=== PATIENT | male | born 1960 | race Caucasian/White ===

== ENCOUNTER 2023-07-05 17:42 | Observation (INO) ==
--- NOTE | 2023-07-05 17:53 | ED Triage Note ---
Date of Service July 05, 2023 Provider in Triage Author: Kenia Simmons History of Present Illness This patient was briefly evaluated while in triage. An abbreviated physical exam was performed. This patient is a 63-year-old Male who presents to the ED for evaluation of chest pain. Has had tightness in his chest for the past couple days. Yesterday he went to [facility] and had a CXR, EKG, and blood work that was negative for an NH. He has a history of cardiac stents. The patient states that he was discharged and had chest pain again at home and became concerned. Yesterday the pain was on the right side and today more in the middle. Has an allergy to shellfish, but able to have IV contrast with no problems and with no pretreatment per patient. Physical Exam GENERAL: Non-toxic and in no acute distress. HEENT: Pupils equal. No obvious scleral icterus. HEART: Regular rate and rhythm. LUNGS: Clear to auscultation. No accessory muscle use. ABDOMEN: Soft, non-tender to palpation. NEURO: Alert and oriented. No obvious neurological deficits on quick neuro exam. Initial orders for labs and / or imaging were placed and patient was placed in the waiting area until a bed is available. Please see further documentation for the full ED course. MDM / Impression Impression Impression: Chest pain Impression: Chest pain Qualifiers: Chest pain type: unspecified Qualified Code(s): R07.9 - Chest pain, unspecified
[2023-07-05 17:55] VITALS: TEMP 97.9
[2023-07-05 18:24] LABS: Basophils # (auto) 0.01 K/uL (0.00-0.20); Basophils % (auto) 0.1 %; Eosinophils # (auto) 0.04 K/uL (0.00-0.50); Eosinophils % (auto) 0.4 %; Hematocrit (blood only) 46.7 % (42.0-52.0); Hemoglobin 16.3 g/dl (14.0-18.0); Immature Granulocytes # (auto) 0.05 K/uL (0.01-0.20); Immature Granulocytes % (auto) 0.5 %; Lymphocytes % (auto) 14.9 %; Mean Corpuscular Hemoglobin 31.8 pg (25.0-34.0); Mean Corpuscular Hgb Conc 34.9 g/dL (32.0-36.0); Mean Platelet Volume 9.6 fL (9.4-12.4); Monocytes # (auto) 0.64 K/uL (0.11-0.59); Monocytes % (auto) 6.8 %; Neutrophils # (auto) 7.26 K/uL (1.40-6.50); Neutrophils % (auto) 77.3 %; Platelet Count 250 K/uL (130-400); RDW Coefficient of Variation 11.9 % (11.5-14.5); RDW Standard Deviation 39.3 fL (36.4-46.3); Red Blood Count 5.13 M/uL (4.70-6.10)
[2023-07-05 18:36] LABS: Albumin Globulin Ratio 1.5 (0.9-2); Albumin Level 4.8 gm/dl (3.4-5.0); BUN Creatinine Ratio 14.4 (10-20); Bilirubin,Total 0.7 mg/dl (0.2-1.0); Calcium 9.3 mg/dl (8.6-10.3); Creatinine Clr Calc Pharmacy 117.3 ml/min; Est GFR (African American) 106.5 ml/min; Est GFR (Non-African American) 91.9 ml/min; Globulin 3.1 gm/dl (2.5-4.0); Magnesium 2.1 mg/dl (1.7-2.4); Potassium 3.9 mmol/L (3.5-5.1); Total Protein 7.9 gm/dl (6.0-8.3)
[2023-07-05 18:42] LABS: Troponin I High Sensitivity 6.3 pg/ml (0-20)
[2023-07-05] MEDS: ASPIRIN CHEW 324 MG PO STA (18:44)
[2023-07-05 18:45] LABS: D Dimer 240 ug/L FEU (0-500); Partial Thromboplastin Time 28 Seconds (21-31); Prothrombin Time 11.1 Seconds (9.0-12.0)
--- NOTE | 2023-07-05 18:46 | XRay Report ---
SINGLE VIEW CHEST CLINICAL HISTORY: Atypical chest pain. FINDINGS: A PA chest radiograph is obtained. No prior studies are available for comparison at the you e of dictation. The cardiomediastinal silhouette is unremarkable. The lungs and pleural spaces are cl ear. No pneumothorax is seen. The bony thorax is grossly intact. IMPRESSION: No active disease in the chest. ACT 112: Negative or not required by law. Electronically signed by: Michael Peoples M.D. 07/05/2023 6:45 PM
--- NOTE | 2023-07-05 19:14 | Emergency Department Note ---
History of Present Illness General Chief Complaint: Referred by Doctor Stated Complaint: TIGHTNESS IN CHEST Time Seen by Provider: 07/05/23 18:25 History of Present Illness Provider Complaint: chest pain Onset (ago): day(s) 3 Duration: intermittent Onset: during rest Pain Location: substernal and left chest Pain Radiation: none Severity: moderate Maximum Pain Intensity: 6 Current Pain Intensity: 3 Quality: + tightness and + aching Relieved By: + nothing Exacerbated By: + nothing Context: + recent illness; no recent surgery, no recent immobilization, no recent travel, no trauma/injury or no new medications Associated symptoms: + dyspnea; no nausea, no vomiting, no palpitations, no fever, no cough or no leg swelling Past Med/Surg History Problem List (Updated 07/05/23 @ 19:57 by Gabriele Cohen MD) Chest pain (Acute) Medical History HTN (hypertension) Social History Smoking Status: Former smoker Tobacco Type: Cigarettes Preferred Language: Brazilian Feels Safe at Home: Yes Physical Exam Vital Signs Vital Signs - 24 hr 07/05/23 17:50 07/05/23 18:02 07/05/23 18:37 Temperature 36.6 C Temperature Source Temporal Artery Scan Pulse Rate 81 Pulse Rate [Apical] 68 Respiratory Rate 22 14 Respiratory Effort / Characteristics Non-Labored Respiratory Depth Normal Blood Pressure 145/91 H Blood Pressure [Left Arm] 146/91 H Blood Pressure Mean 109 Blood Pressure Mean [Left Arm] 109 Blood Pressure Position Sitting Pulse Oximetry 95 97 Oxygen Delivery Method Room Air Room Air Room Air Sepsis Recent Fever Within 48 Hours No Sepsis New/Unexplained Change in Mental Status No Sepsis Action Taken by Nursing No Action Required 07/05/23 18:46 Temperature Temperature Source Pulse Rate 70 Pulse Rate [Apical] Respiratory Rate Respiratory Effort / Characteristics Respiratory Depth Blood Pressure Blood Pressure [Left Arm] Blood Pressure Mean Blood Pressure Mean [Left Arm] Blood Pressure Position Pulse Oximetry Oxygen Delivery Method Sepsis Recent Fever Within 48 Hours Sepsis New/Unexplained Change in Mental Status Sepsis Action Taken by Nursing Physical Exam GENERAL: oriented to person, place, and time. appears well-developed and well- nourished. HENT: Exam performed. - Head: Normocephalic and atraumatic. EYES: Conjunctivae and EOM are normal. Right eye exhibits no discharge. Left eye exhibits no discharge. No scleral icterus. NECK: Normal range of motion. Neck supple. No JVD present. CV: Normal rate, regular rhythm, normal heart sounds and intact distal pulses. There is no peripheral edema. Palpable radial pulses bue. PULM/CHEST: Effort normal and breath sounds normal. No respiratory distress. No stridor. no wheezes. no rales. ABD: The abdomen is soft. There is no tenderness. NEURO: Motor and sensation grossly intact. SKIN: Skin is warm and dry. He is not diaphoretic. PSYCH: normal mood and affect. Behavior is normal. Judgment and thought content normal. Course Course 1824: The patient was evaluated in room D1b. A complete history and physical exam was performed Administered Medications Discontinued Medications Aspirin (Aspirin Chew 324 Mg) 324 mg PO NOW STA Stop: 07/05/23 17:54 Last Admin: 07/05/23 18:44 Dose: 324 mg Documented By: ANDREW Medical Decision Making Laboratory Data Attestation: I reviewed the patient's lab results. 07/05/23 18:00 07/05/23 18:00 Labs: Lab Results 07/05/23 Range/Units 18:00 WBC 9.40 (4.8-10.8) K/ul RBC 5.13 (4.70-6.10) M/uL Hgb 16.3 (14.0-18.0) g/dl Hct 46.7 (42.0-52.0) % MCV 91.0 (80.0-100.0) fL MCH 31.8 (25.0-34.0) pg MCHC 34.9 (32.0-36.0) g/dL RDW Std Deviation 39.3 (36.4-46.3) fL RDW Coeff of Osman 11.9 (11.5-14.5) % Plt Count 250 (130-400) K/uL MPV 9.6 (9.4-12.4) fL Immature Gran % (Auto) 0.5 % Neut % (Auto) 77.3 % Lymph % (Auto) 14.9 % [place] % (Auto) 6.8 % Eos % (Auto) 0.4 % Baso % (Auto) 0.1 % Neut # (Auto) 7.26 H (1.40-6.50) K/uL Lymph # (Auto) 1.40 (1.20-3.40) K/uL [place] # (Auto) 0.64 H (0.11-0.59) K/uL Eos # (Auto) 0.04 (0.00-0.50) K/uL Baso # (Auto) 0.01 (0.00-0.20) K/uL Immature Gran # (Auto) 0.05 (0.01-0.20) K/uL PT 11.1 (9.0-12.0) Seconds INR 1.0 (0.9-1.1) APTT 28 (21-31) Seconds PTT Ratio 1.0 D-Dimer 240 (0-500) ug/L FEU Sodium 140 (136-145) mmol/L Potassium 3.9 (3.5-5.1) mmol/L Chloride 104 (98-107) mmol/L Carbon Dioxide 29 (21-32) mmol/L Anion Gap 7 (3-11) BUN 13 (6-23) mg/dl Creatinine 0.90 (0.6-1.4) mg/dl Est Cr Clr Drug Dosing 117.3 ml/min Est GFR ( Amer) 106.5 ml/min Est GFR (Non-Af Amer) 91.9 ml/min BUN/Creatinine Ratio 14.4 (10-20) Glucose 87 (70-99(Fasting)) mg/dl Calcium 9.3 (8.6-10.3) mg/dl Magnesium 2.1 (1.7-2.4) mg/dl Total Bilirubin 0.7 (0.2-1.0) mg/dl AST 25 (13-39) U/L ALT 36 (7-52) U/L Alkaline Phosphatase 86 (34-104) U/L Troponin I High Sens 6.3 (0-20) pg/ml Total Protein 7.9 (6.0-8.3) gm/dl Albumin 4.8 (3.4-5.0) gm/dl Globulin 3.1 (2.5-4.0) gm/dl Albumin/Globulin Ratio 1.5 (0.9-2) Lipase 13 (11-82) U/L Imaging Data Chest x-ray: Attestation: I personally reviewed and interpreted this imaging study as follows: My impression: Chest x-ray negative. Airway clear. No pneumothorax. No consolidation. No cardiomegaly or cephalization.. No free air under the diaphragm. No fractures of the skeletal structures. Radiologist's impression: Chest X-Ray 07/05/23 17:53 SINGLE VIEW CHEST CLINICAL HISTORY: Atypical chest pain. FINDINGS: A PA chest radiograph is obtained. No prior studies are available for comparison at the time of dictation. The cardiomediastinal silhouette is unremarkable. The lungs and pleural spaces are clear. No pneumothorax is seen. The bony thorax is grossly intact. IMPRESSION: No active disease in the chest. ACT 112: Negative or not required by law. Electronically signed by: Michael Peoples M.D. 07/05/2023 6:45 PM ECG Data Attestation: I personally reviewed and interpreted this ECG as follows: Indication: chest pain Rate (beats per minute): 62 Rhythm: normal sinus Findings: no ST depression, no ST elevation or no prolonged QT Additional Comments: QRS 78 MDM Narrative Cardiac monitoring: An order was placed for continuous cardiac monitoring. The monitor shows a rate of 80 with sinus rhythm interpreted by me Vital signs stable. Labs and imaging within normal limits including negative chest x-ray EKG D-dimer and troponin. Patient will be observed for chest pain rule out ACS. [facility] aware. Impression & Plan Chest pain Discharge Plan Visit Data Chief Complaint: Referred by Doctor Stated Complaint: TIGHTNESS IN CHEST ED Provider: Gabriele Cohen Discharge Problem: Chest pain Patient Disposition: Being Evaluated by Hospitalist Forms Stand Alone Forms: My [facility] Referrals Referrals: Apolonia Wilson PA-C [Primary Care Provider] - Discharge Problem: Chest pain Qualifiers: Chest pain type: unspecified Qualified Code(s): R07.9 - Chest pain, unspecified
--- NOTE | 2023-07-05 20:40 | History & Physical Report ---
Date of Service July 05, 2023 Assessment & Plan (1) Chest pain: Plan: Rule out ACS hx CAD status post stent hyperlipidemia, on statin Rx history of PVCs, patient has refused beta-vicky Rx in the past as per outpatient cardiology note ADHD, anxiety/mood disorder, stable on regimen past tobacco/alcohol abuse OBS PCU Continue aspirin and statin Rx for secondary CAD prevention Follow troponin Beta-vicky and IV heparin Rx if with troponin elevation Cardiology consult Re: Chest pain, history of CAD N.p.o. after midnight in anticipation of ischemic workup DVT prophylaxis. Lovenox subcu Full code Text document was generated using [employer] recognition software. It may contain grammatical or spelling errors. Kindly contact undersigned for clarification of any documentation item in question. History of Present Illness Chief Complaint: Chest pain Primary Care Provider: Apolonia Wilson PA-C History obtained from patient and records. Medical history significant for CAD status post stent, hyperlipidemia, history of PVCs, ALLYN on CPAP, ADHD, anxiety/mood disorder, BPH, past tobacco/alcohol abuse. 5 days history intermittent right-sided chest heaviness which later went to the middle of his chest. Some shortness of breath, no cough symptoms. Compliant with home medications. No recollection of recent tick bites. Different from 2013 episode described as indigestion-like symptoms which led to patient having stent placement for CAD. Patient consulted [facility] ER 2 days ago. Unremarkable workup as per outpatient notes. Patient directed to ER for persistent symptoms by outpatient [facility] cardiology office. Patient still with minimal discomfort. Refusing nitroglycerin trial given severe headache symptoms in the past. Medical History as above Surgical History : Carpal tunnel surgery Family History : Heart disease Personal/Social history : Past tobacco/alcohol abuse, [employer] Allergies Allergy/AdvReac Type Severity Reaction Status Date / Time nitroglycerin AdvReac Severe headache Verified 07/05/23 20:57 Home Medications Medication Instructions Recorded Confirmed Type alprazolam 0.5 mg tablet 0.5 mg PO TID PRN severe anxiety 07/05/23 07/05/23 History aspirin 81 mg tablet,delayed 81 mg PO QAM 07/05/23 07/05/23 History release atorvastatin 40 mg tablet 40 mg PO QAM 07/05/23 07/05/23 History dextroamphetamine-amphetamine 20 20 mg PO UD 07/05/23 07/05/23 History mg tablet epinephrine 0.3 mg/0.3 mL 0.3 mg IM ONCE PRN shellfish 07/05/23 07/05/23 History injection, auto-injector (EpiPen) escitalopram oxalate 10 mg tablet 20 mg PO QAM 07/05/23 07/05/23 History lamotrigine 150 mg tablet 150 mg PO QAM 07/05/23 07/05/23 History tamsulosin 0.4 mg capsule 0.4 mg PO QAM 07/05/23 07/05/23 History Past Med/Surg History Problem List (Updated 07/05/23 @ 19:57 by Gabriele Cohen MD) Chest pain (Acute) Medical History HTN (hypertension) Social History Smoking Status: Former smoker Tobacco Type: Cigarettes Hx Alcohol Use: No Hx Substance Use: No Preferred Language: Moroccan Help Aid Required: No Current Living Situation: Spouse Other Information That Helps Us Care for You: No Feels Safe at Home: Yes Safety Concerns: Feels Safe At This Time Assistive Devices: CPAP Review of Systems Review of Systems: As per HPI, all other systems reviewed and negative Physical Exam Physical Exam: GENERAL: Comfortable, obese, no respiratory distress SKIN: Normal color, warm HEENT: Bespectacled, [place] palpebral conjunctivae, no ptosis, moist buccal mucosa NECK : Supple, no tenderness CHEST : CTA, no tenderness HEART : RRR, no obvious murmurs ABDOMEN: Some distention, nontender EXTREMITIES : No LE swelling/tenderness, no other conspicuous deformities noted NEUROLOGIC : Coherent, no facial asymmetry, no other gross focality Results & Data Results & Data Vital Signs (Past 12 Hours) Vital Signs Temp Pulse Pulse Resp BP BP Pulse Ox 07/05/23 20:34 67 19 144/77 H 97 07/05/23 18:46 70 07/05/23 18:37 68 14 146/91 H 97 07/05/23 18:02 07/05/23 17:50 36.6 C 81 22 145/91 H 95 O2 Del Method 07/05/23 20:34 Room Air 07/05/23 18:46 07/05/23 18:37 Room Air 07/05/23 18:02 Room Air 07/05/23 17:50 Room Air Laboratory Results Laboratory Results WBC 9.40 K/ul (4.8-10.8) 07/05/23 18:00 RBC 5.13 M/uL (4.70-6.10) 07/05/23 18:00 Hgb 16.3 g/dl (14.0-18.0) 07/05/23 18:00 Hct 46.7 % (42.0-52.0) 07/05/23 18:00 MCV 91.0 fL (80.0-100.0) 07/05/23 18:00 MCH 31.8 pg (25.0-34.0) 07/05/23 18:00 MCHC 34.9 g/dL (32.0-36.0) 07/05/23 18:00 RDW Std Deviation 39.3 fL (36.4-46.3) 07/05/23 18:00 RDW Coeff of Osman 11.9 % (11.5-14.5) 07/05/23 18:00 Plt Count 250 K/uL (130-400) 07/05/23 18:00 MPV 9.6 fL (9.4-12.4) 07/05/23 18:00 Immature Gran % (Auto) 0.5 % 07/05/23 18:00 Neut % (Auto) 77.3 % 07/05/23 18:00 Lymph % (Auto) 14.9 % 07/05/23 18:00 [place] % (Auto) 6.8 % 07/05/23 18:00 Eos % (Auto) 0.4 % 07/05/23 18:00 Baso % (Auto) 0.1 % 07/05/23 18:00 Neut # (Auto) 7.26 K/uL (1.40-6.50) H 07/05/23 18:00 Lymph # (Auto) 1.40 K/uL (1.20-3.40) 07/05/23 18:00 [place] # (Auto) 0.64 K/uL (0.11-0.59) H 07/05/23 18:00 Eos # (Auto) 0.04 K/uL (0.00-0.50) 07/05/23 18:00 Baso # (Auto) 0.01 K/uL (0.00-0.20) 07/05/23 18:00 Immature Gran # (Auto) 0.05 K/uL (0.01-0.20) 07/05/23 18:00 ESR 15 mm/hr (0-20) 07/05/23 18:00 PT 11.1 Seconds (9.0-12.0) 07/05/23 18:00 INR 1.0 (0.9-1.1) 07/05/23 18:00 APTT 28 Seconds (21-31) 07/05/23 18:00 PTT Ratio 1.0 07/05/23 18:00 D-Dimer 240 ug/L FEU (0-500) 07/05/23 18:00 Sodium 140 mmol/L (136-145) 07/05/23 18:00 Potassium 3.9 mmol/L (3.5-5.1) 07/05/23 18:00 Chloride 104 mmol/L (98-107) 07/05/23 18:00 Carbon Dioxide 29 mmol/L (21-32) 07/05/23 18:00 Anion Gap 7 (3-11) 07/05/23 18:00 BUN 13 mg/dl (6-23) 07/05/23 18:00 Creatinine 0.90 mg/dl (0.6-1.4) 07/05/23 18:00 Est Cr Clr Drug Dosing 117.3 ml/min 07/05/23 18:00 Est GFR ( Amer) 106.5 ml/min 07/05/23 18:00 Est GFR (Non-Af Amer) 91.9 ml/min 07/05/23 18:00 BUN/Creatinine Ratio 14.4 (10-20) 07/05/23 18:00 Glucose 87 mg/dl (70-99(Fasting)) 07/05/23 18:00 Calcium 9.3 mg/dl (8.6-10.3) 07/05/23 18:00 Magnesium 2.1 mg/dl (1.7-2.4) 07/05/23 18:00 Total Bilirubin 0.7 mg/dl (0.2-1.0) 07/05/23 18:00 AST 25 U/L (13-39) 07/05/23 18:00 ALT 36 U/L (7-52) 07/05/23 18:00 Alkaline Phosphatase 86 U/L (34-104) 07/05/23 18:00 Troponin I High Sens 6.3 pg/ml (0-20) 07/05/23 18:00 Total Protein 7.9 gm/dl (6.0-8.3) 07/05/23 18:00 Albumin 4.8 gm/dl (3.4-5.0) 07/05/23 18:00 Globulin 3.1 gm/dl (2.5-4.0) 07/05/23 18:00 Albumin/Globulin Ratio 1.5 (0.9-2) 07/05/23 18:00 Lipase 13 U/L (11-82) 07/05/23 18:00 Impressions Chest X-Ray 07/05/23 17:53 SINGLE VIEW CHEST CLINICAL HISTORY: Atypical chest pain. FINDINGS: A PA chest radiograph is obtained. No prior studies are available for comparison at the time of dictation. The cardiomediastinal silhouette is unremarkable. The lungs and pleural spaces are clear. No pneumothorax is seen. The bony thorax is grossly intact. IMPRESSION: No active disease in the chest. ACT 112: Negative or not required by law. Electronically signed by: Michael Peoples M.D. 07/05/2023 6:45 PM Diagnostic Findings EKG as per my interpretation : Rate 65, NSR, normal axis, no ischemia (1) Chest pain Chest pain type: unspecified Qualified Code(s): R07.9 - Chest pain, unspecified
[2023-07-05] MEDS ORDERED: LORazepam 0.5 MG TAB PO PRN (20:44)
[2023-07-05] MEDS ORDERED: PROMETHAZINE HCL 6.25 MG in SODIUM CHLORIDE 0.9% 50 ML IV PRN (20:44)
[2023-07-05] MEDS ORDERED: MoRPHine SULFATE 4 MG/ML 1 ML CARP\\VIAL IV PRN (20:44)
[2023-07-05 21:35] LABS: Troponin I High Sensitivity 5.5 pg/ml (0-20)
[2023-07-05] MEDS ORDERED: ALPRAZolam 0.5 MG TABLET PO PRN (22:08)
[2023-07-05 22:10] LABS: C Reactive Protein < 0.50 mg/dl (0-0.5)
[2023-07-05] MEDS: D5W AND LACTATED RINGERS 1,000 ML IV SCH (23:30)
[2023-07-05] MEDS: ACETAMINOPHEN 325 MG TAB PO PRN (23:37)
[2023-07-06] MEDS: DEXTROAMPHETAMINE/AMPHETAMINE IR 20 MG TAB PO SCH (05:56)
[2023-07-06 06:24] LABS: BUN Creatinine Ratio 18.1 (10-20); Chol HDL Ratio 2.6 (0-5); Creatinine Clr Calc Pharmacy 127.2 ml/min; Est GFR (African American) 110.1 ml/min; Potassium 3.8 mmol/L (3.5-5.1)
[2023-07-06 06:32] LABS: Basophils # (auto) 0.01 K/uL (0.00-0.20); Basophils % (auto) 0.2 %; Eosinophils # (auto) 0.13 K/uL (0.00-0.50); Eosinophils % (auto) 2.2 %; Hematocrit (blood only) 42.2 % (42.0-52.0); Hemoglobin 14.4 g/dl (14.0-18.0); Immature Granulocytes # (auto) 0.03 K/uL (0.01-0.20); Immature Granulocytes % (auto) 0.5 %; Lymphocytes # (auto) 1.44 K/uL (1.20-3.40); Lymphocytes % (auto) 23.8 %; Mean Corpuscular Hemoglobin 31.2 pg (25.0-34.0); Mean Corpuscular Hgb Conc 34.1 g/dL (32.0-36.0); Mean Corpuscular Volume 91.5 fL (80.0-100.0); Monocytes # (auto) 0.64 K/uL (0.11-0.59); Monocytes % (auto) 10.6 %; Neutrophils # (auto) 3.79 K/uL (1.40-6.50); Neutrophils % (auto) 62.7 %; Platelet Count 235 K/uL (130-400); Red Blood Count 4.61 M/uL (4.70-6.10); White Blood Count 6.04 K/ul (4.8-10.8)
[2023-07-06 06:39] LABS: Partial Thromboplastin Time 28 Seconds (21-31)
--- NOTE | 2023-07-06 07:56 | Electrocardiogram Report ---
Test Reason : Blood Pressure : / mmHG Vent. Rate : 062 BPM Atrial Rate : 062 BPM P-R Int : 148 ms QRS Dur : 078 ms QT Int : 366 ms P-R-T Axes : 042 061 066 degrees QTc Int : 371 ms Sinus rhythm with occasional Premature ventricular complexes Abnormal ECG No previous ECGs available Confirmed by Sandor Gutiérrez ([id number]) on 07/06/2023 7:55:53 AM Referred By: Marco Antonio Taylor Confirmed By:Sandor Gutiérrez
[2023-07-06] MEDS: ATORVASTATIN 40 MG TAB PO SCH (08:34)
[2023-07-06] MEDS: ASPIRIN 81 MG ECTAB PO SCH (08:34)
[2023-07-06] MEDS: ESCITALOPRAM OXALATE 20 MG TAB PO SCH (08:34)
[2023-07-06] MEDS: TAMSULOSIN HCL 0.4 MG CAP PO SCH (08:34)
[2023-07-06] MEDS: lamoTRIgine 100 MG TAB PO SCH (08:34)
[2023-07-06] MEDS: ENOXAPARIN INJ 40 MG/0.4 ML SYR SQ SCH (08:38)
--- NOTE | 2023-07-06 08:52 | Cardiology Consultation ---
Date of Consultation July 06, 2023 Assessment & Plan (1) Chest pain: Plan 63-year-old male with known coronary disease status post prior coronary invention 2013 with left anterior sending stenting. Presents now for ER and hospital evaluation after symptoms of intermittent chest pressure sensation with some atypical features for angina. EKGs and cardiac enzymes without acute ischemia Blood pressure elevated on presentation Plan: Patient referred for stress echocardiogram this morning. If study positive are not well-tolerated we will refer for diagnostic coronary angiography later today patient agreeable plan. Will likely add medication for further hypertension control Beta-vicky being avoided given use of dextroamphetamine History of Present Illness Reason for Consultation: Chest pain, coronary disease Requesting Physician: Dr Flower Attending Physician: Raza Flower MD History of Present Illness Patient is a 63-year-old male with ongoing cardiac concerns 1. Palpitations due to sensed PVCs 2. Coronary artery disease s/p GILES to LAD in 2013 3. Dyslipidemia 4. ALLYN on CPAP 5. Bipolar disorder Patient presents now after ER evaluation for symptoms of chest pain and chest pressure. Patient notes several weeks history of intermittent chest pressure sensation not specifically exertionally related. No orthopnea PND or peripheral edema no dizziness lightheadedness syncope or near syncope Chronic ventricular ectopy present on past EKGs and event monitor ER evaluation 2 days ago [place] is unrevealing No recent illnesses no changes in medications no fevers chills or unexplained infections. No bleeding difficulties Allergies Allergy/AdvReac Type Severity Reaction Status Date / Time nitroglycerin AdvReac Severe headache Verified 07/05/23 20:57 Home Medications Medication Instructions Recorded Confirmed Type alprazolam 0.5 mg tablet 0.5 mg PO TID PRN severe anxiety 07/05/23 07/05/23 Hist ory aspirin 81 mg tablet,delayed 81 mg PO QAM 07/05/23 07/05/23 History release atorvastatin 40 mg tablet 40 mg PO QAM 07/05/23 07/05/23 History dextroamphetamine-amphetamine 20 20 mg PO UD 07/05/23 07/05/23 History mg tablet epinephrine 0.3 mg/0.3 mL 0.3 mg IM ONCE PRN shellfish 07/05/23 07/05/23 History injection, auto-injector (EpiPen) escitalopram oxalate 10 mg tablet 20 mg PO QAM 07/05/23 07/05/23 History lamotrigine 150 mg tablet 150 mg PO QAM 07/05/23 07/05/23 History tamsulosin 0.4 mg capsule 0.4 mg PO QAM 07/05/23 07/05/23 History Patient History Medical History HTN (hypertension) Social History Smoking Status: Former smoker Tobacco Type: Cigarettes Hx Alcohol Use: No Hx Substance Use: No Preferred Language: Croatian Seam Hammerer Required: No Current Living Situation: Spouse Other Information That Helps Us Care for You: No Feels Safe at Home: Yes Safety Concerns: Feels Safe At This Time Assistive Devices: CPAP Review of Systems Review of Systems: All systems reviewed & are unremarkable except as noted in HPI & below Physical Exam Constitutional: + obese; no acute distress Eyes: PERRL, conjunctivae normal, anicteric sclerae ENMT: external ear and nose normal, oropharynx normal Neck: trachea midline, no thyromegaly Respiratory: normal respiratory effort, lungs clear to auscultation Cardiovascular: RRR, no murmur, no edema Gastrointestinal (Abdomen): normal bowel sounds, soft, nontender, no hepatosplenomegaly Musculoskeletal: Head/Neck/Chest: + head abnormal to inspection Results & Data Vital Signs (Past 12 Hours) Vital Signs Pulse Pulse Resp BP BP Pulse Ox Pulse Ox 07/06/23 08:40 141/82 H 07/06/23 08:40 68 18 07/06/23 08:30 66 14 07/06/23 08:20 67 14 07/06/23 08:10 66 14 07/06/23 08:00 66 14 07/06/23 07:50 66 14 07/06/23 07:40 64 13 07/06/23 07:31 60 07/06/23 07:30 64 13 07/06/23 07:20 60 19 07/06/23 07:10 66 18 07/06/23 07:00 61 16 07/06/23 06:50 64 16 07/06/23 06:40 66 10 L 07/06/23 06:30 64 15 07/06/23 06:20 72 24 07/06/23 06:10 82 20 07/06/23 06:00 69 14 07/06/23 05:53 70 18 07/06/23 05:53 157/93 H 07/06/23 05:53 69 22 157/93 H 07/06/23 05:50 66 6 L 07/06/23 05:40 69 19 07/06/23 05:30 71 14 07/06/23 05:20 68 13 07/06/23 05:10 68 14 07/06/23 05:00 67 14 07/06/23 04:50 67 15 07/06/23 04:40 67 14 07/06/23 04:30 66 14 07/06/23 04:23 07/06/23 04:20 64 4 L 07/06/23 04:10 70 7 L 07/06/23 04:00 67 12 07/06/23 03:50 72 22 07/06/23 03:40 74 17 96 07/06/23 03:30 124/92 07/06/23 03:30 67 15 96 07/06/23 03:30 67 14 124/92 94 07/06/23 03:20 66 13 96 07/06/23 03:10 69 14 96 07/06/23 03:10 76 16 95 07/06/23 03:00 137/79 07/06/23 03:00 66 14 95 07/06/23 02:50 70 15 95 07/06/23 02:40 70 16 95 07/06/23 02:30 69 15 95 07/06/23 02:30 137/84 07/06/23 02:26 69 16 95 07/06/23 02:10 68 14 95 07/06/23 02:00 70 16 95 07/06/23 01:50 70 19 94 07/06/23 01:49 71 17 147/80 H 94 07/06/23 01:40 71 16 94 07/06/23 01:30 147/80 H 07/06/23 00:30 70 16 96 07/06/23 00:29 70 14 171/88 H 95 07/05/23 23:36 78 15 147/87 H 97 07/05/23 23:36 97 07/05/23 23:21 79 16 139/66 96 07/05/23 23:00 78 O2 Del Method O2 Del Method 07/06/23 08:40 07/06/23 08:40 07/06/23 08:30 05/30/24 08:20 07/06/23 08:10 07/06/23 08:00 07/06/23 07:50 07/06/23 07:40 07/06/23 07:31 07/06/23 07:30 07/06/23 07:20 07/06/23 07:10 07/06/23 07:00 07/06/23 06:50 07/06/23 06:40 07/06/23 06:30 07/06/23 06:20 07/06/23 06:10 07/06/23 06:00 07/06/23 05:53 07/06/23 05:53 07/06/23 05:53 07/06/23 05:50 07/06/23 05:40 07/06/23 05:30 07/06/23 05:20 07/06/23 05:10 07/06/23 05:00 07/06/23 04:50 07/06/23 04:40 07/06/23 04:30 07/06/23 04:23 Room Air 07/06/23 04:20 07/06/23 04:10 07/06/23 04:00 07/06/23 03:50 07/06/23 03:40 07/06/23 03:30 07/06/23 03:30 07/06/23 03:30 Room Air 07/06/23 03:20 07/06/23 03:10 07/06/23 03:10 07/06/23 03:00 07/06/23 03:00 07/06/23 02:50 07/06/23 02:40 07/06/23 02:30 07/06/23 02:30 07/06/23 02:26 07/06/23 02:10 07/06/23 02:00 07/06/23 01:50 07/06/23 01:49 Room Air 07/06/23 01:40 07/06/23 01:30 07/06/23 00:30 07/06/23 00:29 Room Air 07/05/23 23:36 Room Air 07/05/23 23:36 Room Air 07/05/23 23:21 Room Air 07/05/23 23:00 Diagnostic Findings Echocardiogram 04/10/2023 The LV wall thickness is mildly increased (concentric). The left ventricular wall motion is normal. The qualitative LV ejection fraction is 60-64% (normal). The left ventricular diastolic function is mildly abnormal (grade I). Mild aortic valve sclerosis is present. Aortic stenosis is absent. There is no evidence of pulmonary hypertension. (1) Chest pain Chest pain type: unspecified Qualified Code(s): R07.9 - Chest pain, unspecified
--- NOTE | 2023-07-06 11:48 | Communication Note ---
Date of Service: July 06, 2023 Patient referred for stress echocardiogram with symptoms of atypical chest discomfort, known coronary disease Patient exercised for total of 6:30 on a standard Richy protocol for an estimated met level 7.5 METS Patient achieved greater than 90% age-predicted maximal heart rate without cardiac symptoms EKG response was normal without ischemia or arrhythmia Blood pressure response was mildly hypertensive LV systolic function was normal at rest and stress Stress echocardiography negative for ischemia without stress-induced symptoms Recommendations: Add amlodipine 5 mg nightly for hypertension control Follow-up cardiology 4 weeks
[2023-07-06] MEDS: ALBUTEROL HFA 8 GM INHALER INH PRN (12:54)
[2023-07-06] MEDS: oxyCODONE HCL IR 5 MG TAB (IMMEDIATE RELEASE) PO PRN (12:54)
[2023-07-06] MEDS: SODIUM CHLORIDE 0.9% 500 ML IV ONE (12:58)
[2023-07-06] MEDS: OPTIRAY 320 125ml IV ONE (14:03)
--- NOTE | 2023-07-06 14:08 | Hospitalist Progress Note ---
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 Multifactorial: Musculoskeletal, hypertension, anxiety, cannot rule out asthma/COPD Clear to auscultation on exam --Stress echocardiography negative for ischemia without stress-induced symptoms --CXR: No active disease in the chest. --Chest CTA:No evidence for a pulmonary embolus. -- Appreciate cardiology input Added amlodipine for better blood pressure control Albuterol as needed Advised to follow-up with pulmonology for PFTs as outpatient Also advised to follow-up with her psychiatrist for managing his bipolar disorder CAD S/P Stent Continue aspirin, statin Hyperlipidemia on statin H/O PVCs refused beta-vicky Rx as per record ADHD, anxiety/mood disorder Continue home medications Advised to follow-up with psychiatry as outpatient Past tobacco/alcohol abuse per records DVT Px: Lovenox SQ Code Status Full code Admission and Anticipated Discharge Date Admission Date: July 05, 2023 Subjective Patient is seen and examined at bedside Had stress test earlier today Reports intermittent chest heaviness Also reports chronic dyspnea on exertion Discussed with patient's over the phone No other complaints Review of Systems Review of Systems: All systems reviewed & are unremarkable except as noted in Subjective Physical Exam Physical Exam: Physical Exam: Vitals signs as noted above General Appearance:Moderately built and nourished, no apparent distress Head: normocephalic, Atraumatic Eyes: normal inspection, EOMI Neck: supple, Trachea midline Respiratory/Chest: Normal breath sounds, CTA, No accessory muscle use Cardiovascular: S1, S2, No murmur Abdomen/GI:Soft, Non tender, Bowel sounds present Extremities/Musculoskeletal:normal inspection, no edema Neurologic/Psych:AAOX3, grossly no focal neurological deficits Skin: normal color, warm Results & Data Results & Data Vital Signs (Past 12 Hours) Vital Signs Pulse Pulse Resp BP BP Pulse Ox O2 Del Method 07/06/23 08:40 141/82 H 07/06/23 08:40 68 18 07/06/23 08:30 66 14 07/06/23 08:20 67 14 07/06/23 08:10 66 14 07/06/23 08:00 66 14 07/06/23 07:50 66 14 07/06/23 07:40 64 13 07/06/23 07:31 60 07/06/23 07:30 64 13 07/06/23 07:20 60 19 07/06/23 07:10 66 18 07/06/23 07:00 61 16 07/06/23 06:50 64 16 07/06/23 06:40 66 10 L 07/06/23 06:30 64 15 07/06/23 06:20 72 24 07/06/23 06:10 82 20 07/06/23 06:00 69 14 07/06/23 05:53 70 18 07/06/23 05:53 157/93 H 07/06/23 05:53 69 22 157/93 H 07/06/23 05:50 66 6 L 07/06/23 05:40 69 19 07/06/23 05:30 71 14 07/06/23 05:20 68 13 07/06/23 05:10 68 14 07/06/23 05:00 67 14 07/06/23 04:50 67 15 07/06/23 04:40 67 14 07/06/23 04:30 66 14 07/06/23 04:23 Room Air 07/06/23 04:20 64 4 L 07/06/23 04:10 70 7 L 07/06/23 04:00 67 12 07/06/23 03:50 72 22 07/06/23 03:40 74 17 96 07/06/23 03:30 124/92 07/06/23 03:30 67 15 96 07/06/23 03:30 67 14 124/92 94 Room Air 07/06/23 03:20 66 13 96 07/06/23 03:10 69 14 96 07/06/23 03:10 76 16 95 07/06/23 03:00 137/79 07/06/23 03:00 66 14 95 07/06/23 02:50 70 15 95 07/06/23 02:40 70 16 95 07/06/23 02:30 69 15 95 07/06/23 02:30 137/84 07/06/23 02:26 69 16 95 07/06/23 02:10 68 14 95 Laboratory Results Short CBC 07/05/23 07/06/23 Range/Units 18:00 05:41 WBC 9.40 6.04 (4.8-10.8) K/ul Hgb 16.3 14.4 (14.0-18.0) g/dl Hct 46.7 42.2 (42.0-52.0) % Plt Count 250 235 (130-400) K/uL BMP 07/05/23 07/06/23 18:00 05:41 Sodium 140 139 Potassium 3.9 3.8 Chloride 104 106 Carbon Dioxide 29 27 BUN 13 15 Creatinine 0.90 0.83 Glucose 87 119 H Calcium 9.3 9.0 Liver Function 07/05/23 Range/Units 18:00 Total Bilirubin 0.7 (0.2-1.0) mg/dl AST 25 (13-39) U/L ALT 36 (7-52) U/L Alkaline Phosphatase 86 (34-104) U/L Albumin 4.8 (3.4-5.0) gm/dl (1) Chest pain Chest pain type: unspecified Qualified Code(s): R07.9 - Chest pain, unspecified
[2023-07-06 14:21] VITALS: RESP 16; O2SAT 95
--- NOTE | 2023-07-06 15:06 | CT Scan Report ---
CHEST CTA for PULMONARY ARTERIES CT DOSE: 903.61 mGy.cm HISTORY: Shortness of breath. TECHNIQUE: Multiaxial CT images of the chest were performed following the intravenous administration of contrast to evaluate the pulmonary arteries. 3D/Maximal intensity projection images were also obta ined. Sagittal and coronal reformations were also reviewed. A dose lowering technique was utilized a dhering to the principles of ALARA. COMPARISON STUDY: None. FINDINGS: Normal caliber thoracic aorta with no evidence for a dissection. The heart is normal in siz e. No pleural or pericardial effusions. No filling defects within the pulmonary arteries to suggest a pulmonary embolus. Severe left coronary artery calcifications are noted. Scattered punctate calcifie d granuloma seen within the liver and spleen. The visualized adrenal glands are unremarkable. Normal esophagus. Normal thyroid gland. Calcified right hilar lymph nodes. No mediastinal or hilar lymphaden opathy. No acute fractures within the chest. No pneumothorax. The central airways are patent. There a re few calcified granulomas seen within the right lung. No focal lung consolidations to suggest pneum onia. No evidence for pulmonary edema. IMPRESSION: No evidence for a pulmonary embolus. ACT 112: Negative or not required by law. Electronically signed by: Get Patiño M.D. 07/06/2023 3:04 PM
--- NOTE | 2023-07-06 15:23 | Discharge Summary ---
Date of Service July 06, 2023 Admission HPI Per Admitting Provider History obtained from patient and records. Medical history significant for CAD status post stent, hyperlipidemia, history of PVCs, ALLYN on CPAP, ADHD, anxiety/mood disorder, BPH, past tobacco/alcohol abuse. 5 days history intermittent right-sided chest heaviness which later went to the middle of his chest. Some shortness of breath, no cough symptoms. Compliant with home medications. No recollection of recent tick bites. Different from 2013 episode described as indigestion-like symptoms which led to patient having stent placement for CAD. Patient consulted [facility] ER 2 days ago. Unremarkable workup as per outpatient notes. Patient directed to ER for persistent symptoms by outpatient [facility] cardiology office. Patient still with minimal discomfort. Refusing nitroglycerin trial given severe headache symptoms in the past. Medical History as above Surgical History : Carpal tunnel surgery Family History : Heart disease Personal/Social history : Past tobacco/alcohol abuse, [employer] Admission Exam Per Admitting Provider GENERAL: Comfortable, obese, no respiratory distress SKIN: Normal color, warm HEENT: Bespectacled, [place] palpebral conjunctivae, no ptosis, moist buccal mucosa NECK : Supple, no tenderness CHEST : CTA, no tenderness HEART : RRR, no obvious murmurs ABDOMEN: Some distention, nontender EXTREMITIES : No LE swelling/tenderness, no other conspicuous deformities noted NEUROLOGIC : Coherent, no facial asymmetry, no other gross focality Principal Diagnosis Atypical chest pain Hypertension Discharge Data Allergies Allergy/AdvReac Type Severity Reaction Status Date / Time nitroglycerin AdvReac Severe headache Verified 07/05/23 20:57 Consultations 07/05/23 18:56 ED Decision to Admit Stat 07/05/23 22:29 Consult Cardiology Routine Procedures Performed Operation Date: 07/06/23 12:30 <No data on this case meets the specified criteria> Laboratory Results WBC 6.04 K/ul (4.8-10.8) 07/06/23 05:41 RBC 4.61 M/uL (4.70-6.10) L 07/06/23 05:41 Hgb 14.4 g/dl (14.0-18.0) 07/06/23 05:41 Hct 42.2 % (42.0-52.0) 07/06/23 05:41 MCV 91.5 fL (80.0-100.0) 07/06/23 05:41 MCH 31.2 pg (25.0-34.0) 07/06/23 05:41 MCHC 34.1 g/dL (32.0-36.0) 07/06/23 05:41 RDW Std Deviation 40.0 fL (36.4-46.3) 07/06/23 05:41 RDW Coeff of Osman 12.0 % (11.5-14.5) 07/06/23 05:41 Plt Count 235 K/uL (130-400) 07/06/23 05:41 MPV 10.0 fL (9.4-12.4) 07/06/23 05:41 Immature Gran % (Auto) 0.5 % 07/06/23 05:41 Neut % (Auto) 62.7 % 07/06/23 05:41 Lymph % (Auto) 23.8 % 07/06/23 05:41 [place] % (Auto) 10.6 % 07/06/23 05:41 Eos % (Auto) 2.2 % 07/06/23 05:41 Baso % (Auto) 0.2 % 07/06/23 05:41 Neut # (Auto) 3.79 K/uL (1.40-6.50) 07/06/23 05:41 Lymph # (Auto) 1.44 K/uL (1.20-3.40) 07/06/23 05:41 [place] # (Auto) 0.64 K/uL (0.11-0.59) H 07/06/23 05:41 Eos # (Auto) 0.13 K/uL (0.00-0.50) 07/06/23 05:41 Baso # (Auto) 0.01 K/uL (0.00-0.20) 07/06/23 05:41 Immature Gran # (Auto) 0.03 K/uL (0.01-0.20) 07/06/23 05:41 ESR 15 mm/hr (0-20) 07/05/23 18:00 PT 11.1 Seconds (9.0-12.0) 07/05/23 18:00 INR 1.0 (0.9-1.1) 07/05/23 18:00 APTT 28 Seconds (21-31) 07/06/23 05:41 PTT Ratio 1.0 07/06/23 05:41 D-Dimer 240 ug/L FEU (0-500) 07/05/23 18:00 Sodium 139 mmol/L (136-145) 07/06/23 05:41 Potassium 3.8 mmol/L (3.5-5.1) 07/06/23 05:41 Chloride 106 mmol/L (98-107) 07/06/23 05:41 Carbon Dioxide 27 mmol/L (21-32) 07/06/23 05:41 Anion Gap 6 (3-11) 07/06/23 05:41 BUN 15 mg/dl (6-23) 07/06/23 05:41 Creatinine 0.83 mg/dl (0.6-1.4) 07/06/23 05:41 Est Cr Clr Drug Dosing 127.2 ml/min 07/06/23 05:41 Est GFR ( Amer) 110.1 ml/min 07/06/23 05:41 Est GFR (Non-Af Amer) 95.0 ml/min 07/06/23 05:41 BUN/Creatinine Ratio 18.1 (10-20) 07/06/23 05:41 Glucose 119 mg/dl (70-99(Fasting)) H 07/06/23 05:41 Calcium 9.0 mg/dl (8.6-10.3) 07/06/23 05:41 Magnesium 2.1 mg/dl (1.7-2.4) 07/05/23 18:00 Total Bilirubin 0.7 mg/dl (0.2-1.0) 07/05/23 18:00 AST 25 U/L (13-39) 07/05/23 18:00 ALT 36 U/L (7-52) 07/05/23 18:00 Alkaline Phosphatase 86 U/L (34-104) 07/05/23 18:00 Troponin I High Sens 4.4 pg/ml (0-20) 07/06/23 05:41 C-Reactive Protein < 0.50 mg/dl (0-0.5) 07/05/23 20:56 Total Protein 7.9 gm/dl (6.0-8.3) 07/05/23 18:00 Albumin 4.8 gm/dl (3.4-5.0) 07/05/23 18:00 Globulin 3.1 gm/dl (2.5-4.0) 07/05/23 18:00 Albumin/Globulin Ratio 1.5 (0.9-2) 07/05/23 18:00 Triglycerides 156 mg/dl (0-150) H 07/06/23 05:41 Cholesterol 117 mg/dl (0-200) 07/06/23 05:41 LDL Cholesterol, Calc 41 mg/dl 07/06/23 05:41 VLDL Cholesterol, Calc 31 mg/dl (0-30) H 07/06/23 05:41 HDL Cholesterol 45 mg/dl 07/06/23 05:41 Cholesterol/HDL Ratio 2.6 (0-5) 07/06/23 05:41 Lipase 13 U/L (11-82) 07/05/23 18:00 Impressions Chest X-Ray 07/05/23 17:53 SINGLE VIEW CHEST CLINICAL HISTORY: Atypical chest pain. FINDINGS: A PA chest radiograph is obtained. No prior studies are available for comparison at the time of dictation. The cardiomediastinal silhouette is unremarkable. The lungs and pleural spaces are clear. No pneumothorax is seen. The bony thorax is grossly intact. IMPRESSION: No active disease in the chest. ACT 112: Negative or not required by law. Electronically signed by: Michael Peoples M.D. 07/05/2023 6:45 PM Chest CTA 07/06/23 12:22 CHEST CTA for PULMONARY ARTERIES CT DOSE: 903.61 mGy.cm HISTORY: Shortness of breath. TECHNIQUE: Multiaxial CT images of the chest were performed following the intravenous administration of contrast to evaluate the pulmonary arteries. 3D/Maximal intensity projection images were also obtained. Sagittal and coronal reformations were also reviewed. A dose lowering technique was utilized adhering to the principles of ALARA. COMPARISON STUDY: None. FINDINGS: Normal caliber thoracic aorta with no evidence for a dissection. The heart is normal in size. No pleural or pericardial effusions. No filling defects within the pulmonary arteries to suggest a pulmonary embolus. Severe left coronary artery calcifications are noted. Scattered punctate calcified granuloma seen within the liver and spleen. The visualized adrenal glands are unremarkable. Normal esophagus. Normal thyroid gland. Calcified right hilar lymph nodes. No mediastinal or hilar lymphadenopathy. No acute fractures within the chest. No pneumothorax. The central airways are patent. There are few calcified granulomas seen within the right lung. No focal lung consolidations to suggest pneumonia. No evidence for pulmonary edema. IMPRESSION: No evidence for a pulmonary embolus. ACT 112: Negative or not required by law. Electronically signed by: Get Patiño M.D. 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 Multifactorial: Musculoskeletal, hypertension, anxiety, cannot rule out asthma/COPD Clear to auscultation on exam --Stress echocardiography negative for ischemia without stress-induced symptoms --CXR: No active disease in the chest. --Chest CTA:No evidence for a pulmonary embolus. -- Appreciate cardiology input Added amlodipine for better blood pressure control Albuterol as needed Advised to follow-up with pulmonology for PFTs as outpatient Also advised to follow-up with her psychiatrist for managing his bipolar disorder CAD S/P Stent Continue aspirin, statin Hyperlipidemia on statin H/O PVCs refused beta-vicky Rx as per record ADHD, anxiety/mood disorder Continue home medications Advised to follow-up with psychiatry as outpatient Past tobacco/alcohol abuse per records DVT Px: Lovenox SQ Code Status Full code Total Time Total Time Spent Total Time Spent (In Minutes): 56 minutes Discharge Plan Discharge Items Patient Disposition: Home - Self-Care Reason For Visit: CP Discharge Diagnosis: Atypical chest pain Hypertension Activity: Per Instructions section Exercise/Sports: Wait until after follow-up appointment Non-emergency contact: Primary Care Provider and Civil Engineering Design Draftsperson Call non-emergency contact if: you have any medication questions, your symptoms worsen, your pain is concerning for you and you have a fever Follow-up/Referrals: Apolonia Wilson PA-C [Primary Care Provider] - 07/14/23 2:30 pm Ai Coates PA-C [Physician Senior Paralegal] - (Date & Time 08/09/2023 10:30 AM Provider Ai Coates PA-C Department Cardiology, [facility] ) Diet: Heart Healthy Add Attending Provider Instructions: Follow-up with your primary care physician Ai Coates PA-C on 08/09/2023 10:30 AM Follow-up with your track grinder operator for lung function test as recommended. Follow-up with your psychiatrist for management of your bipolar disorder as advised -- Monitor your blood pressure regularly at home and discuss with your physician for further adjustment of medications as needed. Seek immediate medical attention if your symptoms reoccur or worsen Please take all medications as instructed on discharge list below. Please call if you have any questions or problems. You can reach a [facility] hospitalist on duty at [facility] 24 hours a day by calling [phone] Pending Studies at Discharge: No Stand-Alone Forms: My [facility], Smoking Cessation Medications and DC Order Prescriptions: New albuterol sulfate [Ventolin HFA] 90 mcg/actuation Hfa Aerosol Inhaler 2 puff inhalation Q8H PRN (Reason: shortness of breath or wheezing) Qty: 6.7 0RF amlodipine [Norvasc] 5 mg Tablet 5 mg PO HS Qty: 30 1RF Continued lamotrigine 150 mg tablet 150 mg PO QAM alprazolam 0.5 mg tablet 0.5 mg PO TID PRN (Reason: severe anxiety) atorvastatin 40 mg tablet 40 mg PO QAM aspirin 81 mg tablet,delayed release (DR/EC) 81 mg PO QAM tamsulosin 0.4 mg capsule 0.4 mg PO QAM dextroamphetamine-amphetamine 20 mg tablet 20 mg PO UD Rx Instructions: take 1 tablet at 6am abd 10 am escitalopram oxalate 10 mg tablet 20 mg PO QAM epinephrine [EpiPen] 0.3 mg/0.3 mL Auto-Injector 0.3 mg IM ONCE PRN (Reason: shellfish) Discharge Orders: Discharge Order (Routine); Ordered 07/06/23 Ordered By: Raza Flower Admission Data Admit Date/Time: 07/05/23 20:42 Attending Provider: Raza Flower Admit Provider: Kayden aVn Primary Care Provider: Apolonia Wilson Other Providers: Carlitos Rocha; Kathe Klein; Marco Antonio Taylor; Stanton Pulliam; Papo You; Quniten Jules; Emmanuel Blandon; Yaima Evangelista; Zoë Harding; Geni Vences; Kathe Villatoro; Santosh Lizama; Claus Huertas; Jade Lester; Ai Coates; Paradise Rich; Veronica Young; Michael Neal; Melanie So
[2023-07-06] MEDS: amLODIPine BESYLATE 5 MG TAB PO ONE (15:47)
[2023-07-06 17:10] VITALS: BP 157/93; PULSE 69
[2023-07-06] MEDS ORDERED: amLODIPine BESYLATE 5 MG TAB PO SCH (21:00)
--- OUTSIDE RECORDS SUMMARY | 2023-07-06 23:26 | External Medical Summary | Summary of Care ---
Author Name Unknown Organization [facility] Address [address] [place] [address] Phone [phone] Care Team Providers Care Log Yard Manager Name Role Phone Apolonia Wilson PA-C Primary Care Provider Reason for Visit * Reason Onset Date Comments Advice 07/04/2023 Encounter Details Date Type Department Care Team (Late st Contact Info) Description 07/04/2023 Telephone Cardiology, [facility] [address] [place] [address] Papo You, DO [address] [facility] [place] [address] Advice Allergies Active Allergy Reactions Criticality Noted Date Comments Cat Dander Itching Low 01/08/2020 Shellfish Allergy Anaphylaxis,Edema airway High 11/06 documented as of this encounter (statuses as of 07/05/2023) Medications Medication Sig Dispensed Refills Start Date End Date Status Escitalopram Oxalate 10 MG Oral Tablet (Lexapro) Take 1 Tablet by mouth in the morning. Active lamoTRIgine 150 MG Oral Tablet (LaMICtal) Take 1 Tablet by mouth in the morning. 09/27/2022 Active Tamsulosin HCl 0.4 MG Oral Capsule (Flomax) Take 1 Capsule by mouth in the morning. 04/26/2022 Active RA Aspirin EC 81 MG Oral Tablet Delayed Release Take 1 Tablet by mouth in the morning. Active ALPRAZolam 0.5 MG Oral Tablet (xaNAX) Take 1 Tablet by mouth at bedtime as needed for Anxiety. Active Atorvastatin Calcium 40 MG Oral Tablet (Lipitor) Take 1 Tablet by mouth in the morning. Active EPINEPHrine 0.3 MG/0.3ML Injection Solution Auto-injector (Autoinjector) Inject 0.3 mg into a large muscle once. shellfish 05/25/2022 Active Amphetamine-Dextroa mphetamine 20 MG Oral Tablet (Adderall) TAKE 1 TABLET BY MOUTH TWICE DAILY AT 6AM AND 10AM, TAKE WITH PRO... (REFER TO PRESCRIPTION NOTES). 04/24/2023 Active documented as of this encounter (statuses as of 07/05/2023) Active Problems No known active problems documented as of this encounter (statuses as of 07/05/2023) Social History Tobacco Use Types Packs/Day Years Used Date Smoking Tobacco: Never Assessed Sex and Gender Information Value Date Recorded Sex Assigned at Not on file Gender Identity Not on file Sexual Orientation Not on file Job Start Date Occupation Industry Not on file Not on file Not on file documented as of this encounter Miscellaneous Notes * Telephone Encounter - Get Palafox OSA - 07/05/2023 2:54 PM EDT I scheduled this patient on: Monday Arrive by 10:15 AMAppt at 10:30 AM (30 min) I did not call patient to verify appt. I was not sure if the records were needed. Please advise. I kept his appt in November, for a FU if needed. Thank you. * Telephone Encounter - Ai Coates PA-C - 07/05/2023 2:46 PM EDT Agree with recommendations. Would be helpful to review records. Recommend to move up appointment todiscuss further. * Telephone Encounter - Adeline Brock LPN - 07/05/2023 1:58 PM EDT Pt calling again today with same complaints as yesterday. Yesterday 07/05/23 he went to [facility] ED. CXR yesterday was OK, per pt Blood work was normal, per pt. Was told pain was not cardiac, ,per pt. Feels chest tightness, feels like he cannot take a full breath. Occasional SOB, with activity. Denies edema Will request records from [facility] . Advised pt to await return call, but if symptoms worsen or become emergent, seek treatment at nearest emergency department. * Telephone Encounter - Dago Luna RN - 07/04/2023 12:02 PM EDT Patient phoned the clinic earlier this am (11:15)and stated that he was having right sided chest discomfort for 3-4 days. He rates it a 2-3 on scale 1/10. He stated it is bothersome . He stated he gets slight shortness of breath. [facility] immediately. He stated he would. He is going to the [facility] he lives there. documented in this encounter Plan of Treatment Upcoming Encounters Date Type Department Care Team (Late st Contact Info) Description 08/09/2023 10:30 AM EDT Office Visit Cardiology, [facility] [address] [facility] [place] [address] Ai Coates PA-C [address] [place] [id number] 12/01/2023 11:00 AM EDT Office Visit Cardiology, [facility] [address] [facility] [place] [address] Ai Coates PA-C [address] [place] [address] Health Maintenance Due Date Last Done Comments Lipid Panel 1962 Depression Screening 1974 HIV Screening 1977 Hepatitis C Screening 1980 Colonoscopy 07/03/2007 Fecal Occult Blood Test 07/03/2007 Sigmoidoscopy 07/03/2007 Zoster Vaccines (1 of 2) 2012 COVID-19 Vaccine (3 - season) 2022 04/28/2020, 04/07/2020 Cologuard 04/05/2026 04/06/2023, 03/28/2023 Colorectal Cancer Screening 04/05/2026 DTaP,Tdap,and Td Vaccines (2 - Td or Tdap) 03/23/2031 03/23/2021 Influenza Vaccine (FLU shot) Completed , 02/09/2022, 11/14/2019, Additional history exists GARDASIL-HPV IMMUNIZATION SERIES Aged Out No longer eligible based on patient's age to complete this topic Hepatitis B Aged Out No longer eligi ble based on patient's age to complete this topic MENINGOCOCCAL (MENACTRA/MENVEO) Aged Out No longer eligible based on patient's age to complete this topic Pneumococcal Vaccine: Pediatrics (0 to 5 Years) and At-Risk Patients (6 to 64 Years) Aged Out No longer eligible based on patient's age to complete this topic documented as of this encounter Medical Devices Not on filedocumented as of this encounter Care Teams Log Yard Manager Relationship Specialty Start Date End Date Apolonia Wilson PA-C [address] [place], [place] [address] [id number] PCP - General Physician Claims Manager 03/16/23 documented as of this encounter
--- OUTSIDE RECORDS SUMMARY | 2023-07-06 23:26 | External Medical Summary | Summary of Care ---
Author Name Unknown Organization [facility] Address [address] [facility] [place] [address] Phone [phone] Care Team Providers Care Laboratory Apparatus Glass Grinder Name Role Phone Apolonia Wilson PA-C Primary Care Provider Reason for Referral * Precert (Within 10 days (routine)) - Authorized Specialty Diagnoses / Procedures Referred By Contmaria del carmen t Referred To Contact Cardiac Studies Diagnoses GOMEZ (dyspnea on exertion) Coronary artery disease involving [place] coronary artery of [place] heart without angina pectoris Palpitations Procedures ECHO, COMPLETE (2D), TRANS-THORACIC Marco Antonio Taylor DO [address] [facility] [place] [address] Referral ID Status Reason Start Date Expiration Date V isits Requested Visits Authorized [id number] Authorized Precert 04/03/2023 999 999 Reason for Visit * Reason Onset Date Comments Follow Up 04/03/2023 Encounter Details Date Type Department Care Team (Late st Contact Info) Description 04/03/2023 Telephone Cardiology, [facility] [address] [place] [address] Marco Antonio Taylor DO [address] [facility] [place] [address] Follow Up (/) Allergies Active Allergy Reactions Criticality Noted Date Comments Cat Dander Itching Low 01/08/2020 Shellfish Allergy Anaphylaxis,Edema airway High 11/06 documented as of this encounter (statuses as of 04/03/2023) Medications Medication Sig Dispensed Refills Start Date End Date Status Escitalopram Oxalate 10 MG Oral Tablet (Lexapro) Take 1 Tablet by mouth in the morning. 0 Active lamoTRIgine 150 MG Oral Tablet (LaMICtal) Take 1 Tablet by mouth in the morning. 0 09/27/2022 Active Tamsulosin HCl 0.4 MG Oral Capsule (Flomax) Take 1 Capsule by mouth in the morning. 0 04/26/2022 Active RA Aspirin EC 81 MG Oral Tablet Delayed Release Take 1 Tablet by mouth in the morning. 0 Active ALPRAZolam 0.5 MG Oral Tablet (xaNAX) Take 1 Tablet by mouth at bedtime as needed for Anxiety. 0 Active Atorvastatin Calcium 40 MG Oral Tablet (Lipitor) Take 1 Tablet by mouth in the morning. 0 Active EPINEPHrine 0.3 MG/0.3ML Injection Solution Auto-injector (Autoinjector) Inject 0.3 mg into a large muscle once. shellfish 0 05/25/2022 Active Gabapentin 300 MG Oral Capsule (Neurontin) Take 3 Capsules by mouth in the morning and 3 Capsules at noon and 3 Capsules before bedtime. 0 Active buPROPion HCl ER (SR) 150 MG Oral Tablet Extended Release 12 Hour (Wellbutrin SR) Take 1 Tablet by mouth in the morning and 1 Tablet before bedtime. 0 Active Amphetamine-Dextroamp hetamine 15 MG Oral Tablet Take 1 Tablet by mouth in the morning and 1 Tablet at noon and 1 Tablet before bedtime. 0 03/20/2023 Active documented as of this encounter (statuses as of 04/03/2023) Active Problems No known active problems documented as of this encounter (statuses as of 04/03/2023) Social History Tobacco Use Types Packs/Day Years Used Date Smoking Tobacco: Never Assessed Sex and Gender Information Value Date Recorded Sex Assigned at Not on file Gender Identity Not on file Sexual Orientation Not on file Job Start Date Occupation Industry Not on file Not on file Not on file documented as of this encounter Miscellaneous Notes * Telephone Encounter - Marco Antonio Taylor DO - 04/03/2023 5:39 PM EST Echo order placed in follow up of recent appointment. Marco Antonio Taylor DO documented in this encounter Plan of Treatment Upcoming Encounters Date Type Department Care Team (Late st Contact Info) Description 04/10/2023 10:45 AM EST Cardiac Studies Cardiac Studies, [facility] [address] [place] [address] Scheduled Orders Name Type Priority Associated Diagnoses Orde r Schedule ECHO, COMPLETE (2D), TRANS-THORACIC Echocardiology Routine GOMEZ (dyspnea on exertion) Coronary artery disease involving [place] coronary artery of [place] heart without angina pectoris Palpitations Expected: 04/03/2023 (Approximate), Expires: 05/01/2025 Health Maintenance Due Date Last Done Comments Lipid Panel 1960 Depression Screening 1974 HIV Screening 1977 Hepatitis C Screening 1980 DTaP,Tdap,and Td Vaccines (1 - Tdap) 1981 Cologuard 07/03/2007 Colonoscopy 07/03/2007 Colorectal Cancer Screening 07/03/2007 Fecal Occult Blood Test 07/03/2007 Sigmoidoscopy 07/03/2007 Zoster Vaccines (1 of 2) 2012 COVID-19 Vaccine ( - 2022-2 4 season) 2022 Influenza Vaccine (FLU shot) (#1) 2022 019 GARDASIL-HPV IMMUNIZATION SERIES Aged Out No longer eligible based on patient's age to complete this topic Hepatitis B Aged Out No longer eligi ble based on patient's age to complete this topic MENINGOCOCCAL (MENACTRA/MENVEO) Aged Out No longer eligible based on patient's age to complete this topic Pneumococcal Vaccine: Pediat rics (0 to 5 Years) and At-Risk Patients (6 to 64 Years) Aged Out No longer eligi ble based on patient's age to complete this topic documented as of this encounter Medical Devices Not on filedocumented as of this encounter Visit Diagnoses Diagnosis GOMEZ (dyspnea on exertion)- Primary Other dyspnea and respiratory abnormality Coronary artery disease involving [place] coronary artery of [place] heart without angina pectoris Palpitations documented in this encounter Care Teams Laboratory Apparatus Glass Grinder Relationship Specialty Start Date End Date Apolonia Wilson PA-C [address] [place] [address] PCP - General Physician Carpenter Assistant Installer 03/16/23 documented as of this encounter
--- OUTSIDE RECORDS SUMMARY | 2023-07-06 23:26 | External Medical Summary | Summary of Care ---
Author Name Unknown Organization [facility] Address [address] [facility] [place] [address] Phone [phone] Care Team Providers Care Biology Tutor Name Role Phone Apolonia Wilson PA-C Primary Care Provider Reason for Visit * Reason Onset Date Comments Advice 07/04/2023 Encounter Details Date Type Department Care Team (Late st Contact Info) Description 07/04/2023 Telephone Cardiology, [facility] [address] [place] [address] Papo You, DO [address] [place] [address] Advice Allergies Active Allergy Reactions Criticality Noted [...] encounter Miscellaneous Notes * Telephone Encounter - Adeline Brock LPN - 07/05/2023 1:58 PM EDT Pt calling again today with same complaints as yesterday. Yesterday 07/05/23 he went to [facility] ED. CXR yesterday was OK, per pt Blood work was normal, per pt. Was told pain was not cardiac, ,per pt. Feels chest tightness, feels like he cannot take a full breath. Occasional SOB, with activity. Denies edema Will request records from [facility]. Advised pt to await return call, but [...] any openings today or tomorrow here at [facility] and he should report to the ER immediately. He stated he would. He is going to the [facility] he lives there. documented in this encounter Plan of Treatment Upcoming Encounters Date Type Department Care Team (Late st Contact Info) Description 12/01/2023 11:00 AM EDT Office Visit Cardiology, [facility] [address] [facility] [place] [address] Ai Coates PA-C [address] [place] [address] [place] [address] Health Maintenance Due Date Last Done Comments [...] filedocumented as of this encounter Care Teams Biology Tutor Relationship Specialty Start Date End Date Apolonia Wilson PA-C [address] [place], [place] [address] [phone] PCP - General Physician Refrigerated Cargo Clerk 03/16/23 documented as of this encounter
--- OUTSIDE RECORDS SUMMARY | 2023-07-06 23:26 | External Medical Summary | Summary of Care ---
Author Name Unknown Organization [facility] Address [address] [facility] [place] [address] Phone [phone] Care Team Providers Care Tube Skiver Name Role Phone Apolonia Wilson PA-C Primary Care Provider Reason for Visit * Reason Onset Date Comments Advice 07/04/2023 Encounter Details Date Type Department Care Team (Late st Contact Info) Description 07/04/2023 Telephone Cardiology, [facility] [address] [place] [address] Papo You, DO [address] [facility], [place] [phone] Advice Allergies Active Allergy Reactions Criticality Noted Date Comments Cat Dander Itching Low 01/08/2020 Shellfish Allergy Anaphylaxis,Edema airway High 11/06 documented as of this encounter (statuses as of 07/04/2023) Medications Medication Sig Dispensed Refills Start Date [...] as of this encounter (statuses as of 07/04/2023) Active Problems No known active problems documented as of this encounter (statuses as of 07/04/2023) Social History Tobacco Use Types Packs/Day Years Used Date Smoking Tobacco: Never Assessed Sex and Gender Information Value Date Recorded Sex Assigned at Not on file Gender Identity Not on file Sexual Orientation Not on file Job Start Date Occupation Industry Not on file Not on file Not on file documented as of this encounter Miscellaneous Notes * Telephone Encounter - Dago Luna RN [...] any openings today or tomorrow here at [facility] and he should report to the ER immediately. He stated he would. He is going to the [facility] he lives there. documented in this encounter Plan of Treatment Upcoming Encounters Date Type Department Care Team (Late st Contact Info) Description 12/01/2023 11:00 AM EDT Office Visit Cardiology, [facility] 132 [facility] [place] [phone] Ai Coates PA-C [address] [place] [address] [place] [phone] Health Maintenance Due Date Last Done Comments [...] filedocumented as of this encounter Care Teams Tube Skiver Relationship Specialty Start Date End Date Apolonia Wilson PA-C [address] [place] [phone] PCP - General Physician Lcac Radar Operator/Navigator 03/16/23 documented as of this encounter
--- OUTSIDE RECORDS SUMMARY | 2023-07-06 23:26 | External Medical Summary | Summary of Care ---
Author Name Unknown Organization [facility] Address [address] [place] [address] Phone [phone] Care Team Providers Care Gift Wrapper Name Role Phone Apolonia Dyson PA-C Primary Care Provider Reason for Visit * Reason Comments Consultation * Evaluate & Treat - Unlimited Visits (Within 10 days (routine)) - Authorized Specialty Diagnoses / Procedures Referred By Contact Referred To Contact Cardiovascular Medicine / Cardiology Diagnoses CAD (coronary artery disease) Apolonia Dyson PA-C [address] [place] [address] Referral ID Status Reason Start Date Expiration Date Visits Requested Visits Authorized [id number] Authorized Specialty Services Required 03/17/2023 999 999 Encounter Details Date Type Department Care Team (Late st Contact Info) Description 03/20/2023 9:00 AM EST Office Visit Cardiology, [facility] 132 [place] [address] Marco Antonio Tayolr, [address] [facility] [place] [address] GOMEZ (dyspnea on exertion)*; Coronary artery disease involving [place] coronary artery of [place] heart without angina pectoris; Palpitations; Dyslipidemia, goal LDL below 70 Allergies Active Allergy Reactions Criticality Noted Date Comments Cat Dander Itching Low 01/08/2020 Shellfish Allergy Anaphylaxis,Edema airway High 11/06 documented as of this encounter (statuses as of 03/20/2023) Medications Medication Sig Dispensed Refills Start Date [...] by mouth in the morning. 0 Active Amphetamine-Dextroamp hetamine 10 MG Oral Tablet (Adderall) Take 1 Tablet by mouth in the morning. 0 02/11/2023 Active Amphetamine-Dextroamp hetamine 15 MG Oral Tablet [...] and 1 Tablet before bedtime. 0 Active documented as of this encounter (statuses as of 03/20/2023) Active Problems No known active problems documented as of this encounter (statuses as of 03/20/2023) Social History Tobacco Use Types Packs/Day Years Used Date Smoking Tobacco: Never Assessed Sex and Gender Information Value Date Recorded Sex Assigned at Not on file Gender Identity Not on file Sexual Orientation Not on file Job Start Date Occupation Industry Not on file Not on file Not on file documented as of this encounter Last Filed Vital Signs Vital Sign Reading Time Taken Comments Blood Pressure 130/82 03/20/2023 9:10 AM EST Pulse 60 03/20/2023 9:10 AM EST Temperature - - Respiratory Rate 14 03/20/2023 9:10 AM EST Oxygen Saturation - - Inhaled Oxygen Concentration - - Weight 127.5 kg (281 lb) 03/20/2023 9:10 AM EST Height - - Body Mass Index - - documented in this encounter Progress Notes * Marco Antonio Taylor, - 03/20/2023 9:12 AM EST Cardiology Consultation [facility] [place] 03/20/2023 PCP: APOLONIA DYSON [address] [place] [address] [phone] History of Present Illness: Quinten Walter is a 62 year old year old male seen in cardiology consultation per the request of Apolonia Dyson PA-C of [facility] for the evaluation of palpitations with past history of coronary heart disease. The patient resides in [place]. He describes recent subjective sensation of palpitations he feels like he has a flip-flop feeling in his chest that may occur with both rest and exertion. He also describes a degree of chronic shortness of breath that he feels like he has been worse recently with minimal activity. In advance of today's appointment he would undergone a pharmacologic nuclear stress test performed 02/22/2023 at [facility] . The report of the perfusion images was faxed over by his referring provider and describes normal rest/stress perfusion, and LVEF of 52%. Review of Systems: All systems reviewed & are unremarkable except as noted in HPI & below Past Medical History: Coronary heart disease. The patient had previously been cared for at [facility] in [place], [place]. The patient brought some records with him including a report of [facility] dated 02/05/2008 which describes minimal nonocclusive LAD disease at that time. The report of a repeat cardiac catheterization is not available for review today, but he describes having presented again in 2013 and having a drug-eluting stent to the LAD. He brought a card with him that describes stent placement in the LAD. Dyslipidemia Bipolar disorder, anxiety, for which he follows with psychiatry at the [facility] Obstructive sleep apnea for which patient utilizes CPAP Obesity Past Surgicaal History: Cardiac catheterization procedures in 2007 in 2013 as noted above Family History: Mother: of [place]'s disease at the age of 69 Father: at the age of 71, h/o DM, no heart stents Brother, [place]'s disease Sister, Marisa's Pt tested negative for [place] Social History: Social History Socioeconomic History Marital status: Spouse name: Bianka Number of children: 2 children Occupational History Owns own company, [employer] Tobacco Use Smoking status: Some smoking in college, none since Smokeless tobacco: No Substance and Sexual Activity Alcohol use: No ETOH x 35 years Prior dependence Drug use: None Allergies: Shellfish allergy and Cat dander Medications: Current Outpatient Medications Medication Sig Dispense Refill lamoTRIgine 150 MG Oral Tablet (LaMICtal) Take 1 Tablet by mouth in the morning. Tamsulosin HCl 0.4 MG Oral Capsule (Flomax) Take 1 Capsule by mouth in the morning. Amphetamine-Dextroamphetamine 10 MG Oral Tablet (Adderall) Take 1 Tablet by mouth in the morning. EPINEPHrine 0.3 MG/0.3ML Injection Solution Auto-injector (Autoinjector) Inject 0.3 mg into a largemuscle once. shellfish Escitalopram Oxalate 10 MG Oral Tablet (Lexapro) Take 1 Tablet by mouth in the morning. RA Aspirin EC 81 MG Oral Tablet Delayed Release Take 1 Tablet by mouth in the morning. Amphetamine-Dextroamphetamine 15 MG Oral Tablet Take 1 Tablet by mouth in the morning. ALPRAZolam 0.5 MG Oral Tablet (xaNAX) Take 1 Tablet by mouth at bedtime as needed for Anxiety. Atorvastatin Calcium 40 MG Oral Tablet (Lipitor) Take 1 Tablet by mouth in the morning. Gabapentin 300 MG Oral Capsule (Neurontin) Take 3 Capsules by mouth in the morning and 3 Capsules at noon and 3 Capsules before bedtime. No current facility-administered medications for this visit. OBJECTIVE/PHYSICAL EXAMINATION: BP 130/82 | Pulse 60 | Resp 14 | Wt 127.5 kg (281 lb) General: no acute distress and stated age Eyes: conjunctiva are pink and non-injected, sclera clear Neck: normal jugular venous pulse, no hepatojugular reflux Chest: normal shape and normal respiratory effort Lungs: clear to auscultation and percussion Cardiac Exam: - regular heart sounds, no murmurs, rubs, or gallops Abdomen: abdomen soft, non-tender, no abnormal masses and no hepatosplenomegaly Musculoskeletal: no gait disturbance, no weakness Extremities: no edema and no cyanosis Neuro: grossly normal exam Psych: appropriate affect and insight. Data: EKG performed today 03/20/2023 and interpreted independently: Sinus rhythm at 70 beats per minute, normal EKG IMPRESSION: 62 year old year old male GOMEZ (dyspnea on exertion) (Primary) CAD (coronary artery disease) Palpitations Dyslipidemia, goal LDL below 70 RECOMMENDATIONS/PLAN: Patient with recent concerns of shortness of breath with exertion as well as subjective palpitations. He was already had a nuclear stress test performed at [facility] with normal perfusion. Ejection fraction at the lower limit of normal 52% Records include a echocardiogram performed in 2008 that revealed normal ejection fraction without significant valvular heart disease. Recommend repeat echocardiogram for evaluation of his systolic, diastolic function, and valvular assessment given his history of shortness of breath with exertion and negative nuclear stress test. Recommend 7 day Zio patch monitor for complaint of subjective palpitations. Continue aspirin and atorvastatin with recommendations to titrate statin therapy for LDL goal of less than 70 milligrams/deciliter. Will obtain records of most recent lipid panel. Patient advised to call with any questions or concerns and to report to the ER with any and all emergencies. Disposition: Follow-up: Return in about 2 months (around 05/19/2023). | Check-out note: Please have pt sign records release [facility] as well as recent primarycare notes, and recent labs including lipid panel Zio today, echo at , follow up in 1-[address] Taylor or PA , after tests completed Marco Antonio Taylor DO Cardiology, [address] [place] [address] This chart was completed in part utilizing [employer] Voice Recognition Software. Grammatical errors, random word insertions, prounoun errors, and incomplete sentences are an occasional consequence of this system due to software limitations, ambient noise, and hardware issues. Any formal questions or concerns about the content, text, or information contained within the body of this dictation should be directly addressed to the provider for clarification. documented in this encounter Nursing Notes * Adeline Brock LPN - 03/20/2023 9:10 AM EST Examination Room: 10 Name: Quinten Walter Date of : 1960 Reason for Visit: New pt Problems/Concerns: [facility] stent 2008 - now having palpitations Interim Hosp(s): denies Chest Pain/SOB: denies MyChart Discussed: DECLINES Patient was instructed to not get up on the exam table until directed and assisted by their provider; patient is to remain seated in the chair/ wheelchair/ exam table for fall prevention and safety reasons. Patient is aware staff will assist stepping down off exam table with personnel. documented in this encounter Plan of Treatment Upcoming Encounters Date Type Department Care Team (Late st Contact Info) Description 04/10/2023 10:45 AM EST Cardiac Studies Cardiac Studies, [address] [address] Scheduled Orders Name Type Priority Associated Diagnoses Orde r Schedule EXTERNAL EKG 2 TO 7 DAYS Holter Routine Palpitations Expected: 03/20/2023 (Approximate), Expires: 03/20/2024 Health Maintenance Due Date Last Done Comments Lipid Panel 1960 COVID-19 Vaccine (#1) 01/02/1963 Depression Screening 1974 HIV Screening 1977 Hepatitis C Screening 1980 DTaP,Tdap,and Td Vaccines (1 - Tdap) 1981 Cologuard 07/03/2007 Colonoscopy 07/03/2007 Colorectal Cancer Screening 07/03/2007 Fecal Occult Blood Test 07/03/2007 Sigmoidoscopy 07/03/2007 Zoster Vaccines (1 of 2) 2012 Influenza Vaccine (FLU shot) (#1) 2022 019 [...] Not on filedocumented as of this encounter Results * EKG (03/20/2023 9:19 AM EST) 03/20/2023 9:19 AM EST Narrative Procedure Note Papo You DO - 03/20/2023 9:19 AM EST REASON FOR STUDY: new CONCLUSIONS: Normal sinus rhythm Normal ECG No previous ECGs available Ventricular Rate: 78 Atrial Rate: 78 MT Interval: 148 QRS Duration: 88 QT/QTc: 358/408 ms P-R-T Taft: 73 : 86 : 48 degrees Marco Antonio Taylor DO EKG Performing Organization Address City/State/[facility] Co de Phone Number [facility] documented in this encounter Visit Diagnoses Diagnosis GOMEZ (dyspnea on exertion)- Primary Other dyspnea and respiratory abnormality Coronary artery disease involving [place] coronary artery of [place] heart without angina pectoris Palpitations Dyslipidemia, goal LDL below 70 Other and unspecified hyperlipidemia CAD (coronary artery disease) Coronary atherosclerosis of unspecified type of vessel, [place] or graft Palpitations documented in this encounter Care Teams Gift Wrapper Relationship Specialty Start Date End Date Apolonia Dyson PA-C [address] [place] [address] PCP - General Physician Box Estimator 03/16/23 documented as of this encounter"
--- OUTSIDE RECORDS SUMMARY | 2023-07-06 23:26 | External Medical Summary | Summary of Care ---
Author Name Unknown Organization [facility] Address [address] [facility] [place] [address] Phone [phone] Care Team Providers Care Youth Counselor Name Role Phone Apolonia Wilson PA-C Primary Care Provider Reason for Visit * Reason Onset Date Comments Medication Question 03/20/2023 Returning ca ll to Dr Taylor 03/22/23 Encounter Details Date Type Department Care Team (Late st Contact Info) Description 03/20/2023 Telephone Cardiology, [facility] [address] [place] [address] Marco Antonio Taylor, [address] [place] [address] Medication Question (Returning call to Dr Mcgraw.. Allergies Active Allergy Reactions Criticality Noted Date Comments Cat Dander Itching Low 01/08/2020 Shellfish Allergy Anaphylaxis,Edema airway High 11/06 documented as of this encounter (statuses as of 03/23/2023) Medications Medication Sig Dispensed Refills Start Date [...] and 1 Tablet before bedtime. 0 Active Amphetamine-Dextr oamphetamine 15 MG Oral Tablet Take 1 Tablet by mouth in the morning and 1 Tablet at noon and 1 Tablet before bedtime. 0 03/20/2023 Active Amphetamine-Dextr oamphetamine 10 MG Oral Tablet (Adderall) Take 1 Tablet by mouth in the morning. 0 02/11/2023 03/20/2023 Discontinued (Medication/ Dose Changed) Amphetamine-Dextr oamphetamine 15 MG Oral Tablet Take 1 Tablet by mouth in the morning. 0 03/20/2023 Discontinued (Refill) documented as of this encounter (statuses as of 03/23/2023) Active Problems No known active problems documented as of this encounter (statuses as of 03/23/2023) Social History Tobacco Use Types Packs/Day Years Used Date Smoking Tobacco: Never Assessed Sex and Gender Information Value Date Recorded Sex Assigned at Not on file Gender Identity Not on file Sexual Orientation Not on file Job Start Date Occupation Industry Not on file Not on file Not on file documented as of this encounter Miscellaneous Notes * Telephone Encounter - Rex Harvey LPN - 03/23/2023 2:00 PM EST Patient and Dr. Dodd aware. * Telephone Encounter - Marco Antonio Taylor DO - 03/22/2023 1:56 PM EST I would continue the Adderall until we have the Zio patch results back to review. EKG without arrhythmia. Marco Antonio Taylor DO * Telephone Encounter - Dago Luna, JOIE - 03/22/2023 10:[address] Dodd called back and I reviewed the message with her from DR. Taylor. She wanted to thank Dr. Taylor for the update. She is also asking if he should hold the Adderall till the Zio report comes back. * Telephone Encounter - Marco Antonio Taylor DO - 03/21/2023 4:22 PM EST Patient has a history of bipolar disorder as well as coronary heart disease. Recently seen as a newpatient for palpitations. A Zio patch was placed. I recommend that we obtain the results of the Zio patch which were should be back in about 2 weeks before we consider any changes. Based on my encounter with the patient, it would seem that the Adderall is an important medication for him. He does complain of subjective palpitations, but as stated, the monitoring manager will provide additional information. I attempted to call back, but received 2 voicemail, please try to return phone message. Marco Antonio Taylor DO * Telephone Encounter - Amaya Ibrahim CMA - 03/20/2023 4:35 PM EST Spoke with Theresa Dodd, Resident at [facility], regarding patient's prescription forAdderall. She states he is currently taking 15 mg immediate release TID - updated med list. Requesting input from Cardiology whether medication is safe for patient to continue given cardiac history. Call back # . documented in this encounter Plan of Treatment Upcoming Encounters Date Type Department Care Team (Late st Contact Info) Description 04/10/2023 10:45 AM EST Cardiac Studies Cardiac Studies, [address] [place] [address] Health Maintenance Due Date Last Done Comments [...] filedocumented as of this encounter Care Teams Youth Counselor Relationship Specialty Start Date End Date Apolonia Wilson PA-C [address] [place] [phone] PCP - General Physician Architecture Drafter 03/16/23 documented as of this encounter
--- OUTSIDE RECORDS SUMMARY | 2023-07-06 23:26 | External Medical Summary | Summary of Care ---
Author Name Unknown Organization [facility] Address [address] [place] [address] Phone [phone] Care Team Providers Care Operations Support Coordinator Name Role Phone Apolonia Wilson PA-C Primary Care Provider Reason for Referral * Evaluate & Treat - Unlimited Visits (Within 10 days (routine)) - Authorized Specialty Diagnoses / Procedures Referred By Contact Referred To Contact Cardiovascular Medicine / Cardiology Diagnoses CAD (coronary artery disease) Apolonia Wilson PA-C [address] [place] [phone] Referral ID Status Reason Start Date Expiration Date Visits Requested Visits Authorized [id number] Authorized Specialty Services Required 03/17/[phone] Question Answer Referral Priority Within 10 days (routine) Where should this appointment be scheduled? [facility] To which of the following clinics are you referring your patient? General Cardiology Clinic Comments CAD, Notes scanned in epic on 03/17/23 Encounter Details Date Type Department Care Team (Late st Contact Info) Description 03/17/2023 Orders Only Access Center, [address] *DO NOT REMOVE THIS DEPARTMENT* [place] [id number] Request, External Referral CAD (coronary artery disease)* Social History Tobacco Use Types Packs/Day Years Used Date Smoking Tobacco: Never Assessed Sex and Gender Information Value Date Recorded Sex Assigned at Not on file Gender Identity Not on file Sexual Orientation Not on file documented as of this encounter Plan of Treatment Upcoming Encounters Date Type Department Care Team (Late st Contact Info) Description 03/20/2023 9:00 AM EST Office Visit Cardiology, [facility] [address] [place] [address] Marco Antonio Taylor, DO [address] [place] [address] Scheduled Referrals Name Type Priority Associated Diagnoses Orde r Schedule CARDIOLOGY REFERRAL OP Referral Within 10 days (routine) CAD (coronary artery disease) Ordered: 03/17/2023 Health Maintenance Due Date Last Done Comments Lipid Panel 1962 COVID-19 Vaccine (#1) 01/02/1963 Depression Screening 1974 HIV Screening 1977 Hepatitis C Screening 1980 DTaP,Tdap,and Td Vaccines (1 - Tdap) 1981 Cologuard 07/03/2007 Colonoscopy 07/03/2007 Colorectal Cancer Screening 07/03/2007 Fecal Occult Blood Test 07/03/2007 Sigmoidoscopy 07/03/2007 Zoster Vaccines (1 of 2) 2012 Influenza Vaccine (FLU shot) (#1) 2022 023 GARDASIL-HPV IMMUNIZATION SERIES Aged Out No longer [...] as of this encounter Visit Diagnoses Diagnosis CAD (coronary artery disease)- Primary Coronary atherosclerosis of unspecified type of vessel, [place] or graft documented in this encounter Care Teams Operations Support Coordinator Relationship Specialty Start Date End Date Apolonia Wilson PA-C [address] [place] [phone] PCP - General Physician Electrician Second 03/16/23 documented as of this encounter
--- OUTSIDE RECORDS SUMMARY | 2023-07-06 23:26 | External Medical Summary | Summary of Care ---
Author Name Unknown Organization [facility] Address [address] [facility] [place] [address] Phone [phone] Care Team Providers Care Rrts Name Role Phone Apolonia Wilson PA-C Primary Care Provider Reason for Visit * Reason Onset Date Comments Medication Refill 07/05/2023 Encounter Details Date Type Department Care Team (Late st Contact Info) Description 07/05/2023 Refill Cardiology, [facility] [address] [place] [address] Marco Antonio Taylor, [address] [place] [address] Allergies Active Allergy Reactions Criticality Noted Date [...] encounter Miscellaneous Notes * Telephone Encounter - Sagrario Vivar CPhT - 07/05/2023 1:50 PM EDT Cardio call- specialty line Thank you, Sagrario Vivar CPhT II Clinical Engineer [facility] ([facility] (Former[facility]) 07/05/2023, 1:50 PM documented in this encounter Plan of Treatment Upcoming Encounters Date Type Department Care Team (Late st Contact Info) Description 12/01/2023 11:00 AM EDT Office Visit Cardiology, [facility] [address] [facility] [place] [address] Ai Coates PA-C [address] [place] [address] Yohan [place] [id number] Health Maintenance Due Date Last Done Comments Lipid Panel 1962 Depression Screening 1974 HIV Screening 1977 Hepatitis C Screening 1980 Colonoscopy 07/03/2007 Fecal Occult Blood Test 07/03/2007 Sigmoidoscopy 07/03/2007 Zoster Vaccines (1 of 2) 2012 COVID-19 Vaccine ( season) 2022 04/28/2020, 04/07/2020 Cologuard 04/05/2026 04/06/2023, [...] filedocumented as of this encounter Care Teams Rrts Relationship Specialty Start Date End Date Apolonia Wilson PA-C [address] [place] [phone] PCP - General Physician Skin Fitter 03/16/23 documented as of this encounter
--- OUTSIDE RECORDS SUMMARY | 2023-07-06 23:26 | External Medical Summary | Summary of Care ---
Author Name Unknown Organization [facility] Address [address] [facility] [place] [address] Phone [phone] Care Team Providers Care Shredded Filler Machine Wrapper Layer Name Role Phone Apolonia Wilson PA-C Primary Care Provider Reason for Visit * Reason Onset Date Comments Test Results 04/10/2023 Encounter Details Date Type Department Care Team (Late st Contact Info) Description 04/10/2023 Telephone Cardiology, [facility] [address] [place] [address] Marco Antonio Taylor, [address] [place] [address] Test Results Allergies Active Allergy Reactions Criticality Noted Date Comments Cat Dander Itching Low 01/08/2020 Shellfish Allergy Anaphylaxis,Edema airway High 11/06 documented as of this encounter (statuses as of 04/10/2023) Medications Medication Sig Dispensed Refills Start Date [...] as of this encounter (statuses as of 04/10/2023) Active Problems No known active problems documented as of this encounter (statuses as of 04/10/2023) Social History Tobacco Use Types Packs/Day Years [...] Encounter - Marco Antonio Taylor DO - 04/10/2023 6:50 PM EST I called and discussed Zio results and echo results. Echo with normal LVEF. Options include metoprolol , however, pt state the palpitations due to rare PVCs do no bother him. He and his spouse have concerns with regards to his easy fatigability. He has sleep apnea in his been compliant with CPAP. He also has a knee that is more swollen than the other knee, and has varicose veins. He has an upcoming follow- up visit with primary care on 04/21/2023 and I recommended he discuss things at that time. He continues to follow with psychiatry with regards to titration of related medications. Keep cardiology follow-up as planned next month. Questions answered to patient/spouse's satisfaction. Marco Antonio Taylor DO documented in this encounter Plan of Treatment Upcoming Encounters Date Type Department Care Team (Late st Contact Info) Description 05/19/2023 10:30 AM EDT Office Visit Cardiology, [facility] [address] [place] [address] Ai Coates PA-C [address] [place] [address] [place] [address] Health Maintenance Due Date [...] filedocumented as of this encounter Care Teams Shredded Filler Machine Wrapper Layer Relationship Specialty Start Date End Date Apolonia Wilson PA-C [address] [place] [address] [place] [phone] PCP - General Physician Supervisor Audit Clerks 03/16/23 documented as of this encounter
--- OUTSIDE RECORDS SUMMARY | 2023-07-06 23:26 | External Medical Summary | Summary of Care ---
Author Name Unknown Organization [facility] Address [address] [facility] [place] [address] Phone [phone] Care Team Providers Care Mixing Technician Name Role Phone Apolonia Wilson PA-C Primary Care Provider Reason for Visit * Reason Onset Date Comments Advice 07/04/2023 Encounter Details Date Type Department Care Team (Late st Contact Info) Description 07/04/2023 Telephone Cardiology, [facility] [address] [place] [address] Papo You, DO [address] [place] [address] Advice Allergies Active Allergy Reactions Criticality Noted [...] encounter Miscellaneous Notes * Telephone Encounter - Ai Coates PA-C - 07/05/2023 2:46 PM EDT Agree with recommendations. Would be helpful to review records. Recommend to move up appointment todiscuss further. * Telephone Encounter - Adeline Brock LPN - 07/05/2023 1:58 PM EDT Pt calling again today with same complaints as yesterday. Yesterday 07/05/23 he went to [facility] ED. CXR yesterday was OK, per pt Blood work was normal, per pt. Was told pain was not cardiac, ,per pt. Feels chest tightness, feels like he cannot take a full breath. Occasional SOB, with activity. Denies edema Will request records from [facility]. Advised pt to await return call, but [...] [facility]. He stated he would. He is going to the [facility] he lives there. documented in this encounter Plan of Treatment Upcoming Encounters Date Type Department Care Team (Late st Contact Info) Description 12/01/2023 11:00 AM EDT Office Visit Cardiology, [facility] [address] [facility] [place] [address] Ai Coates PA-C [address] [place] [address] Health Maintenance Due Date Last Done Comments Lipid Panel 1962 Depression Screening 1974 HIV Screening 1977 Hepatitis C Screening 1980 Colonoscopy 07/03/2007 Fecal Occult Blood Test 07/03/2007 Sigmoidoscopy 07/03/2007 Zoster Vaccines (1 of 2) 2012 COVID-19 Vaccine (3 - 2022- season) 2022 04/28/2020, 04/07/2020 Cologuard 04/05/2026 04/06/2023, [...] filedocumented as of this encounter Care Teams Mixing Technician Relationship Specialty Start Date End Date Apolonia Wilson PA-C [address] [place] [phone] PCP - General Physician Disability Insurance Hearing Officer 03/16/23 documented as of this encounter
--- OUTSIDE RECORDS SUMMARY | 2023-07-06 23:26 | External Medical Summary | Summary of Care ---
Author Name Unknown Organization [facility] Address [address] [facility] [address] Phone [phone] Care Team Providers Care Librarian Specialist Name Role Phone Apolonia Wilson PA-C Primary Care Provider Reason for Visit * Reason Comments Follow Up Encounter Details Date Type Department Care Team (Late st Contact Info) Description 05/19/2023 10:30 AM EDT Office Visit Cardiology, [facility] [address] [facility] [place] [address] Ai Coates PA-C [address] [facility] [place] [id number] Coronary artery disease involving flandreau coronary artery of flandreau heart without angina pectoris*; PVC's (premature ventricular contractions); Dyslipidemia, goal LDL below 70; ALLYN (obstructive sleep apnea) Allergies Active Allergy Reactions Criticality Noted Date Comments Cat Dander Itching Low 01/08/2020 Shellfish Allergy Anaphylaxis,Edema airway High 11/06 documented as of this encounter (statuses as of 05/19/2023) Medications Medication Sig Dispensed Refills Start Date [...] large muscle once. shellfish 0 05/25/2022 Active Amphetamine-Dext roamphetamine 20 MG Oral Tablet (Adderall) TAKE 1 TABLET BY MOUTH TWICE DAILY AT 6AM AND 10AM, TAKE WITH PRO... (REFER TO PRESCRIPTION NOTES). 0 04/24/2023 Active Gabapentin 300 MG Oral Capsule (Neurontin) Take 3 Capsules by mouth in the morning and 3 Capsules at noon and 3 Capsules before bedtime. 0 4 Discontinued buPROPion HCl ER (SR) 150 MG Oral Tablet Extended Release 12 Hour (Wellbutrin SR) Take 1 Tablet by mouth in the morning and 1 Tablet before bedtime. 0 4 Discontinued Amphetamine-Dext roamphetamine 15 MG Oral Tablet Take 1 Tablet by mouth in the morning and 1 Tablet at noon and 1 Tablet before bedtime. 0 03/20/2023 4 Discontinued documented as of this encounter (statuses as of 05/19/2023) Active Problems No known active problems documented as of this encounter (statuses as of 05/19/2023) Social History Tobacco Use Types Packs/Day Years [...] Sign Reading Time Taken Comments Blood Pressure 122/76 05/19/2023 10:34 AM EDT Pulse 78 05/19/2023 10:34 AM EDT Temperature - - Respiratory Rate - - Oxygen Saturation 94% 05/19/2023 10:34 AM EDT Inhaled Oxygen Concentration - - Weight 122.5 kg (270 lb) 05/19/2023 10:34 AM EDT Height - - Body Mass Index - - documented in this encounter Progress Notes * Ai Coates PA-C - 05/19/2023 10:29 AM EDT 05/19/2023 Cardiology Follow Up Primary Managing Editor: Dr. Taylor Past Medical History: Palpitations due to sensed PVCs Coronary artery disease s/p GILES to LAD in 2013 Dyslipidemia ALLYN on CPAP Bipolar disorder HPI: Quinten Walter is a 62 year old male who presents for cardiology follow up. Presents today overall feeling well from cardiac standpoint. Since adjustments in psych meds, palpations have improved. Does not find them bothersome now that he is aware of what they are. Denies chest pain, shortness of breath, edema, PND, orthopnea, lightheadedness, syncope. notes that he wheezes sometimes at rest, denies allergy symptoms. Compliant with all medications. Wears CPAP regularly, needs new supplies but has been having difficulty getting them covered by insurance. REVIEW OF SYSTEMS: See HPI for pertinent positives. All others negative other than those noted in the HPI. CONSTITUTIONAL: No change in weight, No weakness, No fatigue and No fevers, No sweats or chills. PULMONARY: No cough, sputum, or hemoptysis, No wheezing, No shortness of breath and No recent change in breathing. CARDIOVASCULAR: No chest pain, No dyspnea on exertion, No edema, No palpitations and No syncope. GASTROINTESTINAL: No abdominal pain, No change in bowel habits, No significant heartburn, No nausea, No vomiting, No diarrhea, No constipation, No blood in stools or black tarry stools. No dysphagia. HEMATOLOGIC: No abnormal bleeding and No bruising. NEUROLOGICAL: Normal balance, No headaches and No weakness. Review of patient's allergies indicates: Allergen Reactions Shellfish Allergy Anaphylaxis and Edema airway Cat Dander Itching Current Outpatient Medications Medication Sig Dispense Refill Escitalopram Oxalate 10 MG Oral Tablet (Lexapro) Take 1 Tablet by mouth in the morning. lamoTRIgine 150 MG Oral Tablet (LaMICtal) Take 1 Tablet by mouth in the morning. Tamsulosin HCl 0.4 MG Oral Capsule (Flomax) Take 1 Capsule by mouth in the morning. RA Aspirin EC 81 MG Oral Tablet Delayed Release Take 1 Tablet by mouth in the morning. ALPRAZolam 0.5 MG Oral Tablet (xaNAX) Take 1 Tablet by mouth at bedtime as needed for Anxiety. Atorvastatin Calcium 40 MG Oral Tablet (Lipitor) Take 1 Tablet by mouth in the morning. Amphetamine-Dextroamphetamine 20 MG Oral Tablet (Adderall) TAKE 1 TABLET BY MOUTH TWICE DAILY AT 6AM AND 10AM, TAKE WITH PRO... (REFER TO PRESCRIPTION NOTES). EPINEPHrine 0.3 MG/0.3ML Injection Solution Auto-injector (Autoinjector) Inject 0.3 mg into a largemuscle once. shellfish (Patient not taking: Reported on 05/19/2023) No current facility-administered medications for this visit. No past medical history on file. No family history on file. Social History Socioeconomic History Marital status: Unknown OBJECTIVE/PHYSICAL EXAMINATION: BP 122/76 | Pulse 78 | Wt 122.5 kg (270 lb) | SpO2 94% General: No acute distress. A+Ox3. HEENT: Normocephalic. Atraumatic. PERRL. EOMI. Conjunctiva and sclera clear. NECK: No carotid bruits. No JVD. Carotid upstrokes are brisk. Heart: RRR. S1 and S2 noted. No murmur. No rubs or gallops. PMI non displaced. Lungs: Clear to auscultation. No wheezes. No rhonchi. No rales. Abdomen: Normal bowel sounds. Soft. Nontender. No masses or organomegaly. No abdominal bruits. Extremities: No edema. No clubbing or cyanosis. Pulses: radial=2/4, posterior tibial=2/4, dorsalis pedis = 2/4. NEURO: No focal deficits. PSYCH: Appropriate affect and insight. DATA Labs & Imaging Reviewed Below: Echo 04/10/23 The examination is adequate to evaluate the referral indication. The LV wall thickness is mildly increased (concentric). The left ventricular wall motion is normal. The qualitative LV ejection fraction is 60-64% (normal). The left ventricular diastolic function is mildly abnormal (grade I). Mild aortic valve sclerosis is present. Aortic stenosis is absent. There is no evidence of pulmonary hypertension. There are no prior studies available for comparison. EKG 03/20/23 NSR, 78 bpm Zio 03/2023 Duration: 8 days, 3 hours Final Interpretation Patient had a min HR of 64 bpm, max HR of 139 bpm, and avg HR of 87 bpm. Predominant underlying rhythm was Sinus Rhythm. Slight P wave morphology changes were noted. Isolated SVEs were rare (<1.0%), SVE Couplets were rare (<1.0%), and SVE Triplets were rare (<1.0%). Isolated VEs were rare (<1.0%, 2993), VE Couplets were rare (<1.0%, 9), and VE Triplets were rare (<1.0%, 1). Ventricular Bigeminy and Trigeminy were present. 10 patient triggered events and 9 diary events were submitted for interpretation. Events correlatedwith sinus rhythm 73-109 beats per minute. Events also correlated sinus rhythm with sensed premature ventricular contractions. The overall frequency of the premature ventricular contractions was rare accounting for less than 1% of the total QRS complexes. ASSESSMENT/PLAN: 62 year old male 1. Coronary artery disease involving flandreau coronary artery of flandreau heart without angina pectoris - stable, no anginal symptoms - continue aspirin 81 mg daily 2. PVC's (premature ventricular contractions) - occasional palpitations, not bothersome - discussed risks and benefits of beta blockers, patient declines since symptoms are not bothersomeand they are not frequent 3. Dyslipidemia, goal LDL below 70 - labs requested from PCP - continue atorvastatin 40 mg daily 4. ALLYN (obstructive sleep apnea) - compliant with CPAP - recommend to reach out to PCP in regards to new supplies DISPOSITION: Follow up 6 months or sooner if symptoms worsen/fail to improve. All questions were answered to the patients satisfaction. Patient advised to report to ED with any and all emergencies. The patient agrees to the above plan and will call with additional questions or concerns. Ai Coates PA-C Cardiology, [address] [address] I spent a total of 35 minutes on the date of service in preparation, delivery, and documentation ofthe care provided to Quinten Walter excluding any time spent in the performance of separately billed services. This chart was completed in part utilizing SVXR Speech Voice Recognition Software. Grammatical errors, random word insertions, pronoun errors, and incomplete sentences are an occasional consequence of this system due to software limitations, ambient noise, and hardware issues. Any formal questions or concerns about the content, text, or information contained within the body of this dictation should be directly addressed to the provider for clarification. documented in this encounter Nursing Notes * Usha Lubin CMA - 05/19/2023 10:32 AM EDT Examination Room: 2 Name: Quinten Walter Date of : (1960) Reason for Visit: 2m Interim Hospitalization(s): none Problems/Concerns: denied Chest Pain/SOB: always has chest pain. Wheezing when breathing. Doesn't have asthma. Easily SOB with little exertion. My [facility] is a way you can talk to your provider online through e-mail. Would you like to sign up? I can activate it for you? DECLINES Patient was instructed to not get up on the exam table until directed and assisted by their provider; patient is to remain seated in the chair/ wheelchair/ exam table for fall prevention and safety reasons. Patient is aware to have assistance to step down off exam table with personnel. Patient voiced full comprehension of instructions. documented in this encounter Plan of Treatment Upcoming Encounters Date Type Department Care Team (Late st Contact Info) Description 12/01/2023 11:00 AM EDT Office Visit Cardiology, [facility] 132 [facility] [place] [address] Ai Coates PA-C [address] [place] [address] [place] [id number] Health Maintenance Due Date Last Done [...] as of this encounter Visit Diagnoses Diagnosis Coronary artery disease involving flandreau coronary artery of flandreau heart without angina pectoris- Primary PVC's (premature ventricular contractions) Other premature beats Dyslipidemia, goal LDL below 70 Other and unspecified hyperlipidemia ALLYN (obstructive sleep apnea) Obstructive sleep apnea (adult) (pediatric) documented in this encounter Care Teams Librarian Specialist Relationship Specialty Start Date End Date Apolonia Wilson PA-C [address] [place] [address] [phone] PCP - General Physician Stencil Cutter Machine 03/16/23 documented as of this encounter"
--- OUTSIDE RECORDS SUMMARY | 2023-07-06 23:32 | External Medical Summary | Summary of Care ---
Author Name Unknown Organization [facility] Address [address] [facility] [place] [address] Phone [phone] Care Team Providers Care Home Lending Officer Name Role Phone Apolonia Wilson PA-C Primary Care Provider Reason for Visit * Reason Onset Date Comments Advice 07/04/2023 Encounter Details Date Type Department Care Team (Late st Contact Info) Description 07/04/2023 Telephone Cardiology, [facility] [address] [place] [address] Papo You, DO [address] [place] [address] Advice Allergies Active Allergy Reactions Criticality Noted [...] encounter Miscellaneous Notes * Telephone Encounter - Naty Maynard OSA - 07/05/2023 3:55 PM EDT Person calling: Quinten Relationship to patient: self Number to return call: [phone] Reason for call(brief): chest tightness Pharmacy: na Provider Name:Dr. You Detailed message to office:Patient calling in with chest tightness again, wants advice if she should go to ER in [place] instead. No one available upon transfer. Please advise. Thanks * Telephone Encounter - Get Palafox OSA [...] as yesterday. Yesterday 07/05/23 he went to [facility] ED. CXR yesterday was OK, per pt Blood work was normal, per pt. Was told pain was not cardiac, ,per pt. Feels chest tightness, feels like he cannot take a full breath. Occasional SOB, with activity. Denies edema Will request records from [facility]. Advised pt to await return call, but [...] [facility]. He stated he would. He is going to the [facility] he lives there. documented in this encounter Plan of Treatment Upcoming Encounters Date Type Department Care Team (Late st Contact Info) Description 08/09/2023 10:30 AM EDT Office Visit Cardiology, [facility] 132 [facility] [place] [address] Ai Coates PA-C [address] [place] [address] [place] [id number] 12/01/2023 11:00 AM EDT Office Visit Cardiology, [facility] [address] [facility] [place] [address] Ai Coates PA-C [address] [place] [address] Health Maintenance Due Date Last Done Comments [...] filedocumented as of this encounter Care Teams Home Lending Officer Relationship Specialty Start Date End Date Apolonia Wilson PA-C [address] [place] [phone] PCP - General Physician Volunteer Assistant 03/16/23 documented as of this encounter
--- OUTSIDE RECORDS SUMMARY | 2023-07-07 13:03 | External Medical Summary | Summary of Care ---
Author Name Unknown Organization [facility] Address [address] [facility] [place] [address] Phone [phone] Care Team Providers Care Machine Lay Out Worker Name Role Phone Apolonia Wilson PA-C Primary Care Provider Reason for Visit * Reason Onset Date Comments Advice 07/04/2023 Encounter Details Date Type Department Care Team (Late st Contact Info) Description 07/04/2023 Telephone Cardiology, [facility] [address] [place] [address] Papo You, DO [address] [place] [address] Advice Allergies Active Allergy Reactions Criticality Noted [...] Encounter - Marco Antonio Taylor DO - 07/05/2023 4:53 PM EDT Spoke to pt and spouse. Patient describes 1.5 days of waxing waning chest tightness. Emergency room evaluation felt to be indicated. His closest hospital is [facility] and I recommended that the closest hospital aslikely the best, safest option, the patient however would prefer to go to [place]. Spouse driving him. Will make nutrition professor cardio provider aware. Marco Antonio Taylor DO * Telephone Encounter - Paradise Shannon OSA - 07/05/2023 4:43 PM EDT Person calling: Quinten Relationship to patient: self Number to return call: [phone] Reason for call(brief): ER Pharmacy: NA Provider Name: Dr Taylor Detailed message to office:pt calling in to report that he is going to the ER in [place] as his chest tightness is getting worse and pain is near his eye now - he would like a call from Dr. Taylor * Telephone Encounter - Naty Maynard OSA - 07/05/2023 3:55 PM EDT Person calling: Quinten Relationship to patient: self Number to return call: [phone] Reason for call(brief): chest tightness Pharmacy: na Provider Name:Dr. You Detailed message to office:Patient calling in with chest tightness again, wants advice if she should go to ER in [place] instead. No one available upon transfer. Please [...] as yesterday. Yesterday 07/05/23 he went to [facility] ED. CXR yesterday was OK, per pt Blood work was normal, per pt. Was told pain was not cardiac, ,per pt. Feels chest tightness, feels like he cannot take a full breath. Occasional SOB, with activity. Denies edema Will request records from [facility]. Advised pt to await return call, but [...] [facility] and he should report to the ER immediately. He stated he would. He is going to the [facility] he lives there. documented in this encounter Plan of Treatment Upcoming Encounters Date Type Department Care Team (Late st Contact Info) Description 08/09/2023 10:30 AM EDT Office Visit Cardiology, [facility] 132 [facility] [place] [address] Ai Coates PA-C [address] [place] [address] 12/01/2023 11:00 AM EDT Office Visit Cardiology, [facility] [address] [place] [address] Ai Coates PA-C [address] [place] [address] Health Maintenance Due Date Last Done Comments [...] filedocumented as of this encounter Care Teams Machine Lay Out Worker Relationship Specialty Start Date End Date Apolonia Wilson PA-C [address] [place] [phone] PCP - General Physician Life Teacher 03/16/23 documented as of this encounter
--- OUTSIDE RECORDS SUMMARY | 2023-07-07 13:03 | External Medical Summary | Summary of Care ---
Author Name Unknown Organization [facility] Address [address] [facility] [place] [address] Phone [phone] Care Team Providers Care [facility] Attendant Name Role Phone Apolonia Wilson PA-C Primary Care Provider Reason for Visit * Reason Onset Date Comments Advice 07/04/2023 Encounter Details Date Type Department Care Team (Late st Contact Info) Description 07/04/2023 Telephone Cardiology, [facility] [address] [place] [address] Papo You, DO [address] [place] [address] Advice Allergies Active Allergy Reactions Criticality Noted [...] encounter Miscellaneous Notes * Telephone Encounter - Paradise Shannon OSA - 07/05/2023 4:43 PM EDT Person calling: Quinten Relationship to patient: self Number to return call: [phone] Reason for call(brief): ER Pharmacy: NA Provider Name: Dr Taylor Detailed message to office:pt calling in to report that he is going to the ER in [place] as his chest tightness is getting worse and pain is near his eye now - he would like a call from Dr. Taylor * Telephone Encounter - Naty Maynard OSA - 07/05/2023 3:55 PM EDT Person calling: Quinten Relationship to patient: self Number to return call: [phone] Reason for call(brief): chest tightness Pharmacy: na Provider Name:Dr. You Detailed message to office:Patient calling in with chest tightness again, wants advice if she should go to ER in [place] instead. No one available upon transfer. Please [...] as yesterday. Yesterday 07/05/23 he went to [facility] ED. CXR yesterday was OK, per pt Blood work was normal, per pt. Was told pain was not cardiac, ,per pt. Feels chest tightness, feels like he cannot take a full breath. Occasional SOB, with activity. Denies edema Will request records from [facility]. Advised pt to await return [...] [facility]. He stated he would. He is going to the [facility] he lives there. documented in this encounter Plan of Treatment Upcoming Encounters Date Type Department Care Team (Late st Contact Info) Description 08/09/2023 10:30 AM EDT Office Visit Cardiology, [facility] 132 [facility] [place] [address] Ai Coates PA-C [address] [place] [address] 12/01/2023 11:00 AM EDT Office Visit [facility], [facility] [address] [place] [address] Ai Coates PA-C [address] [place] [address] Health Maintenance Due Date Last Done Comments Lipid Panel 1960 Depression Screening 1974 HIV Screening 1977 Hepatitis C Screening 1980 Colonoscopy 07/03/2007 Fecal Occult Blood Test 07/03/2007 Sigmoidoscopy 07/03/2007 Zoster Vaccines (1 of 2) 2012 COVID-19 Vaccine ( - season) 2022 04/28/2020, 04/07/2020 Cologuard 04/05/2026 [...] filedocumented as of this encounter Care Teams [facility] Attendant Relationship Specialty Start Date End Date Apolonia Wilson PA-C [address] [place] [phone] PCP - General Physician B And B Gang Worker 03/16/23 documented as of this encounter
== END 2023-07-06 17:09 | disposition home or self-care (01) ==
LOC: ED 17:42 → EDINP 17:42